=== PATIENT | female | born 2000 | race Caucasian/White ===

== ENCOUNTER 2020-11-12 07:00 | Outpatient (CLI) | payer MEDICAID | END 2020-11-12 23:59 | disposition home or self-care (01) | LOC: COV 07:00 | PROVIDERS: ATTEND Family Medicine | DX: R50.9 Fever, unspecified (principal); R05 Cough; R06.00 Dyspnea, unspecified; R53.83 Other fatigue; R07.0 Pain in throat; R19.7 Diarrhea, unspecified; R11.2 Nausea with vomiting, unspecified; Z20.822 Contact with and (suspected) exposure to COVID-19 ==

== ENCOUNTER 2021-11-25 14:11 | Outpatient (CLI) | payer MEDICAID ==
[2021-11-25 15:18] VITALS: BP 124/90
--- NOTE | 2021-11-25 15:18 | SLEEP CARE CONSULTATION ---
Information from patient questionnaire entered by Rigo So MA. I have reviewed and concur with the information entered by Rigo So MA. This document represents the service I personally performed and the decisions made by , Maria Elena Lagunas ARNP. History of Present Illness Service Date and Time: 11/25/2021 1411 Reason for Visit: New patient Chief Complaint: reports: Snoring, Excessive daytime sleepiness, Fatigue Date of Onset: 2 YEARS Usual bedtime: 10 - 11 PM Time it takes to fall asleep: 2-3 HOURS Snores at night: Yes Observed to quit breathing while asleep: No Sleeps alone due to snoring: No Number of times waking at night: 2-3 Reasons for waking at night: reports: Snoring, Pain, Bathroom Toss, Turn, or Twitch while sleeping: Yes Recalls having dreams: No Usually gets out of bed at: 0700 - 0800 Feels refreshed in the morning: No Morning headache: Yes (RESOLVES AFTER LUNCH; 3 times a week) Sleepy or fatigued during the day: Yes Ever fallen asleep while driving: No Takes day naps: Yes (almost every day; she sleeps for 2-3 hours) Dreams during day naps: No Prior sleep studies: No Additional HPI information: I had the pleasure of seeing NU MATTHEW today regarding the possibility of her having a sleep disorder. Her current complaints are snoring, excessive daytime sleepiness and fatigue. She has at least 2 nights a week that she cannot sleep at night. She will go to sleep the next night but it will still take her 2-3 hours to fall asleep. She states mostly after she goes to sleep she stays asleep. She will wake up to adjust for knee pain and also due to snoring. Her states her snoring is not bad and is more like gasping (airy) rather than snoring loudly. He has not seen her stop breathing and her snoring is not every night. She has also had times where she will sleep longer than 8-9 hours. She does not feel rested in the morning. She does have a 3 year old but states he has been sleeping through the night since he was 8 months old. - Parasomnia Symptoms Ever been unable to move upon waking from sleep: No Walks in sleep: No Talks in sleep: Yes Ever acted out dreams in sleep: No Ever felt weak in the knees when startled or emotional: No Bothered by creepy, crawly, restless sensations in legs: No Problems with memory or concentration: Yes (concentration, has ADHD) Subjective Initial [place] Sleepiness Scale score: 12 (2021) Past Medical History Past Medical History: reports: Arthritis, Insulin resistance (PCOS), Anxiety, Depression, Attention deficit Social History The patient's occupation is a [employer]. Patient is and lives in . Have you smoked in the past 12 months: No Alcohol use: Yes Alcohol amount and frequency: 2 -3 X YEARLY Caffeine use: Yes Caffeine amount and frequency: 3 X DAILY Family History Family history of sleep disordered breathing: Yes Family Hx Sleep Apnea: Mother: Snoring, Father: Snoring, Sleep apnea - Treated, Grandparent: Snoring, Sleep apnea - Untreated Allergies and Home Medications Known drug allergies: Yes (PNC, CODIENE, MORPHINE, LATEX) Drug allergies reviewed: Yes Home medication list reviewed: Yes Allergy and home medication list: Wellbutrin 300 mg daily Metformin Jencycla ( control) Vitamin D once a week daily multivitamin Review of Systems Weight gain over past 5 years: 80 Weight loss over past 5 years: 5-10 Cardiovascular: denies: high blood pressure Gastrointestinal: denies: heartburn Neurological: reports: headaches (hx of migrains), head trauma (as a child) Psychiatric: reports: Attention Deficit Hyperactivity, anxiety, depression Ear/Nose/Throat: reports: tonsillectomy. denies: wisdom teeth removed Endocrine: denies: thyroid disease Musculoskeletal: reports: joint pain (knees) Physical Exam Vital signs obtained and entered by: Katelin SO CMA [facility] Blood Pressure: 124/90 (LEFT, PULSE 89) Cuff size: wrist Heart Rate: 89 O2 Saturation: 98 (WITH PAPER MASK) Height: 5 ft 2 in Weight: 232 lb Body Mass Index: 42.4 BMI Classification: Morbidly Obese Neck circumference: 15 (inches) Hard palate: normal Uvula visualization: 100% Mallampati Class I Tongue: normal in size Tonsils: absent bilaterally Neck: normal w/o lymphadenopathy or thyromegaly Heart: regular rate and rhythm Lungs: clear bilaterally Impression and Plan 1. Suspected Obstructive Sleep Apnea-Hypopnea Syndrome, as suggested by a history of irregular snoring, morning headache, unrefreshed sleep, cognitive impairment, and excessive daytime sleepiness. Narrow oropharynx and obesity are common predisposing factors for obstructive sleep apnea-hypopnea syndrome. I recommend proceeding to polysomnography to confirm the diagnosis and to assess severity. If the patient has significant sleep disordered breathing, a manual CPAP titration study will also be performed to find the optimal treatment pressure. I informed the patient of what the sleep studies involve and after some discussion, obtained agreement to proceed. The pathophysiology of obstructive sleep apnea-hypopnea syndrome was discussed with the patient and health risks of cardiovascular and cerebrovascular disease if not treated. [facility] brochure for obstructive sleep apnea-hypopnea syndrome given and reviewed. Risks of drowsy driving discussed in detail and patient advised to avoid long distance driving and to gizzard puller at the first sign of drowsiness. Patient agreed to plan. [facility] drowsy driving brochure given. * Schedule polysomnography * Avoid long distance driving or driving when feeling sleepy. * Avoid alcohol, sedative and muscle relaxant around bedtime. * Continue to try to lose weight. * Review instructions provided by trained office staff on how to prepare for the sleep study. * Return for follow-up after sleep study completed. Counseling Topics: Weight loss health impact Visit Type: In Office Time Spent with Patient (minutes): 31 Provider Statement: I spent 100% of the Face to Face Visit with the patient with greater than 50% spent counseling the patient and coordination of care.
== END 2021-11-25 14:12 | disposition home or self-care (01) ==
LOC: SC 14:11
PROVIDERS: ATTEND Nurse Practitioner Family
DX: G47.10 Hypersomnia, unspecified (principal); R51.9 Headache, unspecified; R06.83 Snoring; G47.8 Other sleep disorders; R41.89 Other symptoms and signs involving cognitive functions and awareness; E66.01 Morbid (severe) obesity due to excess calories; Z68.41 Body mass index [BMI] 40.0-44.9, adult
CPT/HCPCS: 99203; 99212

== ENCOUNTER 2021-12-05 08:20 | Outpatient (CLI) | payer MEDICAID | END 2021-12-05 08:21 | disposition home or self-care (01) | LOC: SC 08:20 | PROVIDERS: ATTEND Nurse Practitioner Family | DX: R09.02 Hypoxemia (principal); R00.0 Tachycardia, unspecified | CPT/HCPCS: 95806 ==

== ENCOUNTER 2021-12-30 15:59 | Outpatient (CLI) | payer MEDICAID ==
[2021-12-30 16:27] VITALS: BP 127/72
--- NOTE | 2021-12-30 16:27 | SLEEP CARE CONSULTATION ---
Information from patient questionnaire entered by Rigo So MA. I have reviewed and concur with the information entered by Rigo So MA. This document represents the service I personally performed and the decisions made by , Maria Elena Lagunas ARNP. History of Present Illness Service Date and Time: 12/30/2021 1559 Initial [place] Sleepiness Scale score: 12 (2021) Current [place] Sleepiness Scale score: 11 (2021) Additional HPI information: NU MATTHEW returns for follow up and results of the recently performed home sleep study. The patient was informed of the following findings: No significant sleep disordered breathing with an average AHI of 1.6 and gatito oxygen saturation of 84%. She was also measured to have some tachycardia with an unverified heart rate of 219. I explained the pathophysiology behind obstructive sleep apnea. Patient does not have sleep apnea and was advised how weight gain could increase the risk of developing sleep apnea in the future. I strongly encouraged the patient to lose weight. Patient counseled not drink alcohol less than 4 hours before bedtime as it can increase snoring and apnea. Patient was cautioned about risks of drowsy driving until sleepiness symptoms resolve. Patient denies drowsy driving. Sleep Study - Results Type of Sleep Study: Home sleep study (F/U HOMESTUDY) Prior sleep studies: No Polysomnography/Home Sleep Study results: Physician Impression: The quality of the study is good. The length of the study is adequate (> 240 minutes). Please also see the tabulated and graphic data. 1. No significant sleep disordered breathing, with an AHI of 1.6/hr and g[place] SaO2 of 84%. During the study, the patient had 1 apneas (1 obstructive, 0 central, 0 mixed) and 14 hypopneas. The longest episode lasted 58.5 seconds. The patient slept almost exclusively in non-supine positions (supine AHI was 2.5 and non-supine, 1.48). 2. Hypoxemia (ICD-10 R09.02), minimal, with the lowest oxygen saturation of 84 % and 0.4 minutes with SaO2 under 90%. Baseline oxygen saturation was normal (Average oxygen saturation was 96%). 3. Tachycardia, with maximum recorded heart rate of 219 beats per minute but cannot be verified. Allergies and Home Medications Known drug allergies: Yes (PNC, CODINE, LATEX, MORPHNE) Drug allergies reviewed: Yes Home medication list reviewed: Yes (no changes) Review of Systems Review of systems same as previous: No (upcoming surgery on the 12 of January) Physical Exam Vital signs obtained and entered by: CABRERA GARCÍA Blood Pressure: 127/72 (LEFT, PULSE 95, RESP 16,) Cuff size: wrist Heart Rate: 97 O2 Saturation: 98 (PAPER MASK) Height: 5 ft 2 in Weight: 220 lb Body Mass Index: 40.2 BMI Classification: Morbidly Obese Impression and Plan 1. Tachycardia,unspecified. During the patient's home study there was a recorded maximum heart rate of 219 beats per minute but this could not be verified. Patient advised to follow up with PCP to consider cardiac monitoring to further evaluate her for the recorded tachycardia. * Attempt to lose weight * Avoid alcohol consumption near bedtime * Return as needed for follow up. Counseling Topics: Weight loss health impact Follow up recommended for: Other (Tachycardia) Visit Type: In Office Time Spent with Patient (minutes): 14 Provider Statement: I spent 100% of the Face to Face Visit with the patient with greater than 50% spent counseling the patient and coordination of care.
== END 2021-12-30 16:00 | disposition home or self-care (01) ==
LOC: SC 15:59
PROVIDERS: ATTEND Nurse Practitioner Family
DX: G47.10 Hypersomnia, unspecified (principal); E66.01 Morbid (severe) obesity due to excess calories; Z68.41 Body mass index [BMI] 40.0-44.9, adult; R00.0 Tachycardia, unspecified
CPT/HCPCS: 99212

== ENCOUNTER 2022-05-15 10:46 | Outpatient (CLI) | payer MEDICAID | END 2022-05-15 10:47 | disposition home or self-care (01) | LOC: LAB.N 10:46 | PROVIDERS: ATTEND Nurse Practitioner Obstetrics & Gynecology | DX: N91.2 Amenorrhea, unspecified (principal) | CPT/HCPCS: 36415; 84702 ==

== ENCOUNTER 2022-05-26 20:58 | Emergency (ER) | payer MEDICAID ==
[2022-05-26 21:22] LABS: BASOPHILS % (AUTO) 0.3 %; EOSINOPHILS # (AUTO) 0.2 10^3/uL (0.0-0.7); EOSINOPHILS % (AUTO) 1.8 %; HCT - HEMATOCRIT 40.1 % (37.0-47.0); HGB - HEMOGLOBIN 13.7 g/dL (12.0-16.0); LYMPHOCYTES # (AUTO) 3.3 10^3/uL (1.5-3.5); LYMPHOCYTES % (AUTO) 31.4 %; MEAN CORPUSCULAR HEMOGLOBIN 28.8 pg (27.0-31.0); MEAN CORPUSCULAR HGB CONC 34.2 g/dL (32.0-36.0); MEAN CORPUSCULAR VOLUME 84.4 fL (81.0-99.0); MEAN PLATELET VOLUME 11.1 fL (7.9-10.8); MONOCYTES # (AUTO) 0.6 10^3/uL (0.0-1.0); MONOCYTES % (AUTO) 5.8 %; NEUTROPHILS # (AUTO) 6.3 10^3/uL (1.5-6.6); NEUTROPHILS % (AUTO) 60.2 %; PLT - PLATELET COUNT 260 10^3/uL (130-450); RED BLOOD COUNT 4.75 10^6/uL (4.20-5.40); RED CELL DISTRIBUTION WIDTH 12.8 % (12.0-15.0); WHITE BLOOD COUNT 10.5 x10^3/uL (4.8-10.8)
--- NOTE | 2022-05-26 21:22 | ED Physician Documentation ---
PD HPI FEMALE - Stated complaint Stated Complaint: PREG,CRAMPING,BLEEDING - Chief complaint Chief Complaint: Abd Pain - History obtained from History obtained from: Patient - History of Present Illness Timing - onset: Yesterday - Additional information Additional information: 21-year-old female with history of PCOS, at unknown weeks gestational age presents for lower pelvic cramping and vaginal bleeding for 1 day. Patient states that she has irregular menstrual cycles and her last cycle was greater than 1 month ago. Reports positive test 05/06/22. Patient does not have an FORMULATION SCIENTIST appointment until June 05. She thinks that her blood type is O+ but she does not know for sure. Miscarriage at 11 weeks gestational age with last . Has 1 live born at term via . Review of Systems Ten Systems: 10 systems reviewed and negative Constitutional: denies: Fever, Chills Eyes: denies: Loss of vision, Decreased vision Cardiac: denies: Chest pain / pressure, Palpitations GI: denies: Abdominal Pain, Abdominal Swelling : reports: Vaginal bleeding, Now EGA. denies: LMP PD PAST MEDICAL HISTORY - Past Medical History Past Medical History: Yes : Other (PCOS) - Allergies Allergies/Adverse Reactions: Allergies Allergy/AdvReac Type Severity Reaction Status Date / Time codeine Allergy Edema Verified 05/26/22 21:06 morphine Allergy Hallucinati Verified 05/26/22 21:06 ons PD ED PE NORMAL - Vitals Vital signs reviewed: Yes - General General: Alert and oriented X 3, No acute distress, Well developed/nourished, Other (obese) - HEENT HEENT: Atraumatic, PERRL, EOMI - Neck Neck: Supple, no meningeal sign, No bony TTP, No adenopathy - Cardiac Cardiac: RRR, No murmur, Strong equal pulses - Respiratory Respiratory: No respiratory distress, Clear bilaterally - Abdomen Abdomen: Soft, Non tender, Non distended - Female Female : Deferred - Rectal Rectal: Deferred - Back Back: No CVA TTP, No spinal TTP - Derm Derm: Normal color, Warm and dry, No rash - Extremities Extremities: No deformity, No tenderness to palpate, Normal ROM s pain - Neuro Neuro: Alert and oriented X 3, hand plug shaper 2-12 intact, No motor deficit, No sensory deficit, Normal speech - Psych Psych: Normal mood, Normal affect Results - Vitals Vitals: Vital Signs - 24 hr 05/26/22 05/26/22 21:02 23:06 Temperature 36.8 C 36.5 C Heart Rate 97 88 Respiratory 16 16 Rate Blood Pressure 133/71 H 128/70 O2 Saturation 100 100 Oxygen O2 Source Room air - Labs Labs: Laboratory Tests 05/26/22 05/26/22 05/26/22 21:13 21:14 21:14 WBC 10.5 RBC 4.75 Hgb 13.7 Hct 40.1 MCV 84.4 MCH 28.8 MCHC 34.2 RDW 12.8 Plt Count 260 MPV 11.1 H Neut # (Auto) 6.3 Lymph # (Auto) 3.3 [place] # (Auto) 0.6 Eos # (Auto) 0.2 Baso # (Auto) 0.0 Absolute Nucleated RBC 0.00 Nucleated RBC % 0.0 Sodium 135 Potassium 3.6 Chloride 103 Carbon Dioxide 22 Anion Gap 10.0 BUN 17 Creatinine 0.8 Estimated GFR (MDRD) 89 Glucose 99 Calcium 9.5 Total Bilirubin 0.5 AST 24 ALT 32 Alkaline Phosphatase 65 Total Protein 7.7 Albumin 4.1 Globulin 3.6 Albumin/Globulin Ratio 1.1 HCG, Quant Urine Color RED/BLOODY Urine Clarity HAZY Urine pH 5.5 Ur Specific [place] >=1.030 H Urine Protein TRACE Urine Glucose (UA) NEGATIVE Urine Ketones NEGATIVE Urine Occult Blood LARGE H Urine Nitrite NEGATIVE Urine Bilirubin NEGATIVE Urine Urobilinogen 0.2 (NORMAL) Ur Leukocyte Esterase NEGATIVE Urine RBC TNTC H Urine WBC 0-3 Ur Squamous Epith Cells FEW Squamous Urine Bacteria Few Urine Mucus Few Strands Urine Culture Comments NOT INDICATED Blood Type 05/26/22 05/26/22 21:14 21:14 WBC RBC Hgb Hct MCV MCH MCHC RDW Plt Count MPV Neut # (Auto) Lymph # (Auto) [place] # (Auto) Eos # (Auto) Baso # (Auto) Absolute Nucleated RBC Nucleated RBC % Sodium Potassium Chloride Carbon Dioxide Anion Gap BUN Creatinine Estimated GFR (MDRD) Glucose Calcium Total Bilirubin AST ALT Alkaline Phosphatase Total Protein Albumin Globulin Albumin/Globulin Ratio HCG, Quant 18537.00 Urine Color Urine Clarity Urine pH Ur Specific [place] Urine Protein Urine Glucose (UA) Urine Ketones Urine Occult Blood Urine Nitrite Urine Bilirubin Urine Urobilinogen Ur Leukocyte Esterase Urine RBC Urine WBC Ur Squamous Epith Cells Urine Bacteria Urine Mucus Urine Culture Comments Blood Type O POSITIVE PD MEDICAL DECISION MAKING - ED course ED course: Vaginal bleeding in early . Patient is blood type O+. Transvaginal ultrasound shows gestational sac without obvious heartbeat. When correlating with hCG there is high suspicion for early miscarriage. Patient was counseled on ultrasound and lab findings. She was counseled to keep her appointment for follow-up on June 05 as previously scheduled. Pelvic rest counseled until seen and cleared by FORMULATION SCIENTIST. Departure - Departure Disposition: Home, Self Care Clinical Impression: Threatened miscarriage, Type O blood, Rh positive Instructions: ED Miscarriage Poss Comments: Keep your follow-up appointment as already scheduled on the . Pelvic rest until seen and cleared by FORMULATION SCIENTIST. Your blood type O+ today. Discharge Date/Time: 05/26/22 23:18
--- OUTSIDE RECORDS SUMMARY | 2022-05-26 21:22 | EXTERNAL MEDICAL SUMMARY RPT | Continuity of Care Document ---
:2000 Author Organization [place] Address [address] [place] [address] Phone Allergies No information. Encounters No information. Functional Status No information. Immunizations No information. Medications date description facility + Ondansetron 4 MG Disintegrating Tablet [facility] Problems No information. Procedures date description facility Diagnosis [facility] + Finding [facility] + General Physician [facility] Results/Labs test date author facility value unit interpret ation Result panel 1 (unknown) (no (unknown) (unknown) (no value) (units (unk nown) date) unknown) (unknown) (no (unknown) (unknown) Qualifiers: (units (un known) date) unknown) (unknown) (no (unknown) (unknown) Status: Acute (units ( unknown) date) unknown) (unknown) (no (unknown) (unknown) Messi from 150 (units (unknown) date) mg. - Initially unknown) thought it was working well. Feeling more (unknown) (no (unknown) (unknown) agitated (units (unkno wn) date) recently. Spouse unknown) pointed out that patient has been more agitated (unknown) (no (unknown) (unknown) anger and (units (unkn own) date) frustration. unknown) (unknown) (no (unknown) (unknown) any clear side (units (unknown) date) effects, becasue unknown) was taking multiple medications at one (unknown) (no (unknown) (unknown) option. There are (units (unknown) date) lots available, unknown) but one is Breathwrk. (unknown) (no (unknown) (unknown) time. (units (unkno wn) date) unknown) (unknown) (no (unknown) (unknown) with son. Overall (units (unknown) date) fortune. unknown) (unknown) (no (unknown) (unknown) (no value) (units (unk nown) date) unknown) (unknown) (no (unknown) (unknown) (no value) (units (unk nown) date) unknown) (unknown) (no (unknown) (unknown) * Acknowledge (units ( unknown) date) that you are doing unknown) everything that you can to prepare to move. (unknown) (no (unknown) (unknown) * At age 16 (units (un known) date) stopped taking unknown) medication 'cold turkey.' Spur overmedicated. (unknown) (no (unknown) (unknown) * Deep breathing (units (unknown) date) - this Care unknown) Dry Box Operator recommended using an akash as another (unknown) (no (unknown) (unknown) * Balta, (units (unk nown) date) Adderrall, unknown) escitalopram, sertraline - don't recall if there were (unknown) (no (unknown) (unknown) * Self timeout (units (unknown) date) unknown) (unknown) (no (unknown) (unknown) * Used to write, (units (unknown) date) but does not feel unknown) that she has the quiet time to do so now. (unknown) (no (unknown) (unknown) * Using 70419 (units ( unknown) date) while deep unknown) breathing. Patient says that this has helped with (unknown) (no (unknown) (unknown) * bupropion HCl (units (unknown) date) (Wellbutrin XL) unknown) 300 mg? PO QAM 90 tabs 1RF - Increased in (unknown) (no (unknown) (unknown) ADDENDUM (units (u nknown) date) unknown) (unknown) (no (unknown) (unknown) 01/15/22 1300 (units ( unknown) date) unknown) (unknown) (no (unknown) (unknown) 04/06/22 1016 (units ( unknown) date) unknown) (unknown) (no (unknown) (unknown) Active/Remission (units (unknown) date) status: currently unknown) active Major depression episode (unknown) (no (unknown) (unknown) After 7 days if (units (unknown) date) no side effects unknown) increase to 2 caps daily 37.5 mg PO DAILY (unknown) (no (unknown) (unknown) JOSELUIS Laughlin (units ( unknown) date) [id number] unknown) (unknown) (no (unknown) (unknown) Care Management (units (unknown) date) Visit unknown) (unknown) (no (unknown) (unknown) Date PHQ9 GAD7 (units (unknown) date) unknown) (unknown) (no (unknown) (unknown) Discontinued (units (u nknown) date) Reason: Dose unknown) Change (unknown) (no (unknown) (unknown) [facility]) (unknown) (no (unknown) (unknown) Signed with (units (un known) date) Addenda unknown) (unknown) (no (unknown) (unknown) Stop after 7 days (units (unknown) date) (cross-taper with unknown) venlafaxine XR) 150 mg PO QAM 7 tabs (unknown) (no (unknown) (unknown) (no value) (units (unk nown) date) unknown) (unknown) (no (unknown) (unknown) (4 extra people (units (unknown) date) and 5 extra unknown) animals). (unknown) (no (unknown) (unknown) 01/15/22, patient (units (unknown) date) has not received unknown) mailing yet. (unknown) (no (unknown) (unknown) Father has been (units (unknown) date) helping, but has unknown) an appointment in [place] today. Was supposed (unknown) (no (unknown) (unknown) In the past it (units (unknown) date) was a strained unknown) relationship. Brother is older but has seems (unknown) (no (unknown) (unknown) Paperwork process (units (unknown) date) but [employer] company unknown) wants preapproval from insurance. (unknown) (no (unknown) (unknown) Wanting time to (units (unknown) date) develop working unknown) careers here in [place]. (unknown) (no (unknown) (unknown) Worksheet). (units (un known) date) unknown) (unknown) (no (unknown) (unknown) YouTube video (units ( unknown) date) with guided unknown) movement called 'Freeze Dance.' (unknown) (no (unknown) (unknown) are close to her (units (unknown) date) age, since she has unknown) not met a lot of people living here. (unknown) (no (unknown) (unknown) bed, use an akash. (units (unknown) date) unknown) (unknown) (no (unknown) (unknown) children. Was (units ( unknown) date) encouraged that unknown) there were some other women working there who (unknown) (no (unknown) (unknown) father's rental (units (unknown) date) homes. unknown) (unknown) (no (unknown) (unknown) from home. (units (unk nown) date) unknown) (unknown) (no (unknown) (unknown) next 2 weeks. (units ( unknown) date) unknown) (unknown) (no (unknown) (unknown) patient. (units (unkno wn) date) unknown) (unknown) (no (unknown) (unknown) procedures were (units (unknown) date) completed and unknown) patient is expected to be on crutches for the (unknown) (no (unknown) (unknown) she can practice (units (unknown) date) deep breathing or unknown) gentle movement. Maybe do exercise in am (unknown) (no (unknown) (unknown) stepmother and (units (unknown) date) their children. unknown) (unknown) (no (unknown) (unknown) to go back to (units ( unknown) date) work today, but unknown) recovery is taking longer since additional (unknown) (no (unknown) (unknown) who is not living (units (unknown) date) with them. 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 (unknown) (no (unknown) (unknown) younger because (units (unknown) date) of having autism. unknown) (unknown) (no (unknown) (unknown) * 21 year old (units ( unknown) date) female referred to unknown) BHIP by CHAPIN Barbosa for depression. (unknown) (no (unknown) (unknown) (1) Major (units (unkn own) date) depressive unknown) disorder: (unknown) (no (unknown) (unknown) * 2 adopted (units (un known) date) sisters, ages 15 + unknown) 13. (unknown) (no (unknown) (unknown) * 8 year old twin (units (unknown) date) boys and 15 year unknown) old brother, who are half siblings to (unknown) (no (unknown) (unknown) * Current: (units (unk nown) date) unknown) (unknown) (no (unknown) (unknown) * Discussed tools (units (unknown) date) that patient has unknown) used in the past to manage anxiety: (unknown) (no (unknown) (unknown) * Encouraged (units (u nknown) date) patient set aside unknown) time in morning and evening (5-10 minutes), when (unknown) (no (unknown) (unknown) * Had knee (units (unk nown) date) surgery on Wednesday. unknown) Today is the first day that she is home alone. (unknown) (no (unknown) (unknown) * Is working on (units (unknown) date) process of getting unknown) a wheelchair, fell down with crutches. (unknown) (no (unknown) (unknown) * Lives with (units (u nknown) date) spouse ( in unknown) December 2019), 3 year old son, father and (unknown) (no (unknown) (unknown) * Longer term (units ( unknown) date) plan is to move unknown) closer to [place] where they have more family. (unknown) (no (unknown) (unknown) * Mailed article (units (unknown) date) Activating the unknown) Parasympatheric Nervous System, and following (unknown) (no (unknown) (unknown) * Mother and (units (u nknown) date) brother live in unknown) [place]. Patient is very close with her mother now. 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 Position (unknown) (no (unknown) (unknown) * Parent's friends (units (unknown) date) still living in unknown) the home.have moved into already crowded home (unknown) (no (unknown) (unknown) * Past: (units (unkno wn) date) unknown) (unknown) (no (unknown) (unknown) * Patient has (units ( unknown) date) been attending unknown) [facility] since December 2021. (unknown) (no (unknown) (unknown) * Patient is (units (u nknown) date) using breathing unknown) exercises and using movement with her son. Found a (unknown) (no (unknown) (unknown) * Postoperative (units (unknown) date) appointment is unknown) 02/26/22. (unknown) (no (unknown) (unknown) * Stepmother has (units (unknown) date) an older son, not unknown) in the home and hey also adopted another son, (unknown) (no (unknown) (unknown) * Work has been (units (unknown) date) understanding and unknown) giving her training materials that she can do (unknown) (no (unknown) (unknown) * Write down list (units (unknown) date) of worries, unknown) question accuracy and reframe (see Worries (unknown) (no (unknown) (unknown) - 75 mg of (units (unk nown) date) venlafaxine - unknown) feeling less agitated, spouse says that he has noticed (unknown) (no (unknown) (unknown) - Agree with (units (u nknown) date) 12/17/21 plan to unknown) switch antidepressants. Venlafaxine is good choice (unknown) (no (unknown) (unknown) - No longer (units (un known) date) taking any unknown) buproprion, (unknown) (no (unknown) (unknown) (units (unknown) date) unknown) (unknown) (no (unknown) (unknown) (units (unknown) date) unknown) (unknown) (no (unknown) (unknown) (units (unknown) date) unknown) (unknown) (no (unknown) (unknown) (units (unknown) date) unknown) (unknown) (no (unknown) (unknown) 01/15/22 (units (unkno wn) date) unknown) (unknown) (no (unknown) (unknown) [id number] (units (unkno wn) date) unknown) (unknown) (no (unknown) (unknown) 0RF (units (unkno wn) date) unknown) (unknown) (no (unknown) (unknown) 1. Little (units (unkn own) date) interest or unknown) pleasure in doing things: several days (unknown) (no (unknown) (unknown) 2. Feeling down, (units (unknown) date) depressed, or unknown) hopeless: several days (unknown) (no (unknown) (unknown) 12/15/21 - (units (unkn own) date) unknown) (unknown) (no (unknown) (unknown) 12/15/21 13 12 (units ( unknown) date) unknown) (unknown) (no (unknown) (unknown) 12/17/21 - PCP (units ( unknown) date) Saravanan - unknown) (unknown) (no (unknown) (unknown) 12/22/21 (units (un known) date) [facility] unknown) RECOMMENDATIONS + TREATMENT PLAN for PCP Saravanan: (unknown) (no (unknown) (unknown) 21 year old female (units (unknown) date) participating in unknown) [facility] for symptoms of depression. Patient and (unknown) (no (unknown) (unknown) 3 year old son. (units (unknown) date) Patient states unknown) that prior to moving to [place] in 2019, she (unknown) (no (unknown) (unknown) 3. Trouble (units (unk nown) date) falling or staying unknown) asleep, or sleeping too much: nearly every day (unknown) (no (unknown) (unknown) 12/30/21 - (units (unkno wn) date) venlafaxine - for unknown) 1 week have been taking 37.5 mg, today will start (unknown) (no (unknown) (unknown) 01/15/22 (units (unkno wn) date) unknown) (unknown) (no (unknown) (unknown) 01/15/22 16 15 (units ( unknown) date) unknown) (unknown) (no (unknown) (unknown) 4. Feeling tired (units (unknown) date) or having little unknown) energy: nearly every day (unknown) (no (unknown) (unknown) 40 minutes (units (unk nown) date) unknown) (unknown) (no (unknown) (unknown) 5. Poor appetite (units (unknown) date) or overeating: unknown) nearly every day (unknown) (no (unknown) (unknown) 6. Feeling bad (units (unknown) date) about yourself - unknown) or that you are a failure or have let yourself (unknown) (no (unknown) (unknown) 60 caps 1RF (units (un known) date) unknown) (unknown) (no (unknown) (unknown) 7. Trouble (units (unk nown) date) concentrating on unknown) things, such as reading the newspaper or watching (unknown) (no (unknown) (unknown) 8. Moving or (units (u nknown) date) speaking so slowly unknown) that other people could have noticed? - Or the (unknown) (no (unknown) (unknown) 9. Thoughts that (units (unknown) date) you would be unknown) better off or of hurting yourself in some (unknown) (no (unknown) (unknown) Addendum (units (unkno wn) date) Documented By: unknown) OSCAR Rocha (unknown) (no (unknown) (unknown) Addendum Signed (units (unknown) date) By: unknown) <Electronically signed by Christelle Parson MS (unknown) (no (unknown) (unknown) Age/Sex: 21 / F (units (unknown) date) Date of Service: unknown) (unknown) (no (unknown) (unknown) Agreed to by [facility] (units (unknown) date) team unknown) (unknown) (no (unknown) (unknown) All participants (units (unknown) date) + their role: unknown) (Providers,Parent, Spouse,etc): (unknown) (no (unknown) (unknown) Attending Dr: (units ( unknown) date) Christelle MOORE unknown) (unknown) (no (unknown) (unknown) BHIP Assessment + (units (unknown) date) Plan unknown) (unknown) (no (unknown) (unknown) BHIP Fretted String Instrument Repairer (units (unknown) date) Follow-Up unknown) (unknown) (no (unknown) (unknown) BHIP CoCM Time: (units (unknown) date) manager statistics total unknown) time spent in discharge process including (unknown) (no (unknown) (unknown) BHIP Discharge (units (unknown) date) Note unknown) (unknown) (no (unknown) (unknown) BHIP Goal #1: New (units (unknown) date) adult coping unknown) skills (unknown) (no (unknown) (unknown) BHIP Goal (units (unkn own) date) Progress#1: 4 unknown) (Applying skills) (unknown) (no (unknown) (unknown) Becoming easily (units (unknown) date) annoyed or unknown) irritable: 1 = Several days (unknown) (no (unknown) (unknown) Being so restless (units (unknown) date) that it is hard to unknown) sit still: 1 = Several days (unknown) (no (unknown) (unknown) Case Formulation (units (unknown) date) unknown) (unknown) (no (unknown) (unknown) Cognitive (units (unkn own) date) Behavioral unknown) Therapy, Motivational Interviewing and Mindfulness (unknown) (no (unknown) (unknown) : 2000 (units (unknown) date) Acct:[id number] unknown) (unknown) (no (unknown) (unknown) Dept at (units (unkno wn) date) . unknown) (unknown) (no (unknown) (unknown) Discontinued (units (u nknown) date) unknown) (unknown) (no (unknown) (unknown) Documented By: (units (unknown) date) Christelle Parson unknown) 01/15/22 0805 (unknown) (no (unknown) (unknown) F32.0 - Major (units ( unknown) date) depressive unknown) disorder, single episode, mild (unknown) (no (unknown) (unknown) Family:: (units (unkno wn) date) unknown) (unknown) (no (unknown) (unknown) Feeling afraid as (units (unknown) date) if something awful unknown) might happen: 3 = Nearly every day (unknown) (no (unknown) (unknown) Feeling nervous, (units (unknown) date) anxious, or on unknown) edge: 3 = Nearly every day (unknown) (no (unknown) (unknown) Future Plans: (units ( unknown) date) Refer to [facility] in unknown) the future as needed for worsening symptoms. (unknown) (no (unknown) (unknown) KALIE-7 (units (unkno wn) date) unknown) (unknown) (no (unknown) (unknown) Goals + Progress (units (unknown) date) unknown) (unknown) (no (unknown) (unknown) Interventions (units ( unknown) date) unknown) (unknown) (no (unknown) (unknown) Loc: [facility] (units (unkno wn) date) unknown) (unknown) (no (unknown) (unknown) Location of (units (un known) date) patient:: Home unknown) (unknown) (no (unknown) (unknown) Location of (units (un known) date) provider:: [address]) [address] (unknown) (no (unknown) (unknown) Medication Update (units (unknown) date) unknown) (unknown) (no (unknown) (unknown) Not being able to (units (unknown) date) stop or control unknown) worryin = Nearly every day (unknown) (no (unknown) (unknown) Other (units (unkno wn) date) unknown) (unknown) (no (unknown) (unknown) Other/Additional (units (unknown) date) Details:: unknown) (unknown) (no (unknown) (unknown) Over the last 2 (units (unknown) date) weeks, how often unknown) have you been bothered by any of the following (unknown) (no (unknown) (unknown) PHQ-9 (units (unkno wn) date) unknown) (unknown) (no (unknown) (unknown) Patient can (units (un known) date) readmit to [facility] unknown) for a limited course of therapy. (unknown) (no (unknown) (unknown) Patient consented (units (unknown) date) to receive unknown) services via telehealth?: Yes (unknown) (no (unknown) (unknown) Patient: (units (unkno wn) date) Nu Matthew O unknown) MR#: [id number] (unknown) (no (unknown) (unknown) Presenting (units (unk nown) date) Problem Update unknown) (unknown) (no (unknown) (unknown) Previous: (units (unkn own) date) unknown) (unknown) (no (unknown) (unknown) Protective (units (unk nown) date) Factors: spouse, 3 unknown) year old son, parents, multiple siblings. (unknown) (no (unknown) (unknown) Questionnaires (units (unknown) date) unknown) (unknown) (no (unknown) (unknown) Real-time,sychron (units (unknown) date) ous services were unknown) performed via:: VSee (unknown) (no (unknown) (unknown) Reason for (units (unk nown) date) Discharge: Not unknown) engaged (unknown) (no (unknown) (unknown) Signed By: (units (unk nown) date) <Electronically unknown) signed by OSCAR Rocha> (unknown) (no (unknown) (unknown) Source: Developed (units (unknown) date) by Drs. Navneet Thomason unknown) Pura Cabrera, Zelalem Blackmon (unknown) (no (unknown) (unknown) Christelle Parson, (units (unknown) date) SOCIAL WORK PROGRAM COORDINATOR, INTERNAL SALES ENGINEER unknown) (unknown) (no (unknown) (unknown) TeleHealth (units (unk nown) date) unknown) (unknown) (no (unknown) (unknown) This note may (units ( unknown) date) have been all or unknown) partially generated using voice recognition (unknown) (no (unknown) (unknown) Time Spent (units (unk nown) date) unknown) (unknown) (no (unknown) (unknown) Time Spent: (units (un known) date) unknown) (unknown) (no (unknown) (unknown) Total KALIE-7 score (units (unknown) date) (0-4 normal; 5-9 unknown) mild; 10-14 moderate; 15-21 severe): 15 (unknown) (no (unknown) (unknown) Total score: 16 (units (unknown) date) unknown) (unknown) (no (unknown) (unknown) Trouble relaxing: (units (unknown) date) 2 = More than half unknown) the days (unknown) (no (unknown) (unknown) W> 04/06/22 (units (unknown) date) 1016 unknown) (unknown) (no (unknown) (unknown) Were services (units ( unknown) date) performed via unknown) telephone only?: No (unknown) (no (unknown) (unknown) Worrying too much (units (unknown) date) about different unknown) things: 2 = More than half the days (unknown) (no (unknown) (unknown) and colleagues, (units (unknown) date) with an unknown) educational shantanu from [employer]. (unknown) (no (unknown) (unknown) and communication (units (unknown) date) with patient: 10 unknown) min (unknown) (no (unknown) (unknown) and your family (units (unknown) date) down: nearly every unknown) day (unknown) (no (unknown) (unknown) bupropion HCl (units ( unknown) date) (Wellbutrin XL) unknown) (unknown) (no (unknown) (unknown) communication (units ( unknown) date) with referring unknown) provider + psychiatric linux consultant, documentation, (unknown) (no (unknown) (unknown) have occurred. (units (unknown) date) If there are any unknown) questions, please contact the Medical Records (unknown) (no (unknown) (unknown) may occur. (units (unk nown) date) Occasional unknown) wrong-word or 'sound-alike' substitutions may have (unknown) (no (unknown) (unknown) more than usual: (units (unknown) date) not at all unknown) (unknown) (no (unknown) (unknown) new living (units (unkn own) date) environment, but unknown) now has new stressors in current living environment. (unknown) (no (unknown) (unknown) occurred due to (units (unknown) date) the inherent unknown) limitations of voice recognition software. Please (unknown) (no (unknown) (unknown) opposite - being (units (unknown) date) so fidgety or unknown) restless that you have been moving around a lot (unknown) (no (unknown) (unknown) problems? (units (unkn own) date) unknown) (unknown) (no (unknown) (unknown) read the note (units ( unknown) date) carefully and unknown) recognize, using context, where these substitutions (unknown) (no (unknown) (unknown) related to (units (unk nown) date) medications. Does unknown) feel that she is less agitated. (unknown) (no (unknown) (unknown) severity: mild (units (unknown) date) Major depression unknown) recurrence: single episode Qualified Code(s): (unknown) (no (unknown) (unknown) since no previous (units (unknown) date) SNRI trials. unknown) (unknown) (no (unknown) (unknown) software. (units (unkn own) date) Although every unknown) effort is made to edit content, oyster picker errors (unknown) (no (unknown) (unknown) spouse are living (units (unknown) date) with her father, unknown) stepmother and 5 siblings, in addition to her (unknown) (no (unknown) (unknown) taking 75 mg per (units (unknown) date) PCP Saravanan's unknown) directions. Feeling 'monotone' and not sure if (unknown) (no (unknown) (unknown) television: more (units (unknown) date) than half the days unknown) (unknown) (no (unknown) (unknown) too, some (units (unkn own) date) increased unknown) motivation. (unknown) (no (unknown) (unknown) venlafaxine ER (units (unknown) date) unknown) (unknown) (no (unknown) (unknown) was feeling some (units (unknown) date) depression. unknown) Initially, she experienced less stress due to the (unknown) (no (unknown) (unknown) way: not at all (units (unknown) date) unknown) Result panel 2 (unknown) (no (unknown) (unknown) (no value) (units (unk nown) date) unknown) (unknown) (no (unknown) (unknown) (no value) (units (unk nown) date) unknown) (unknown) (no (unknown) (unknown) [facility] (units (unknown) date) Medicine unknown) (unknown) (no (unknown) (unknown) [place] (units ( unknown) date) [id number] unknown) (unknown) (no (unknown) (unknown) Draft (units (unkno wn) date) unknown) (unknown) (no (unknown) (unknown) Family Practice (units (unknown) date) Office Visit unknown) (unknown) (no (unknown) (unknown) Hives (units (unkno wn) date) unknown) (unknown) (no (unknown) (unknown) (no value) (units (unk nown) date) unknown) (unknown) (no (unknown) (unknown) [id number] (units (unkno wn) date) unknown) (unknown) (no (unknown) (unknown) 04/22/22 (units (unkno wn) date) unknown) (unknown) (no (unknown) (unknown) ADHD (units (unkno wn) date) unknown) (unknown) (no (unknown) (unknown) Age/Sex: 21 / F (units (unknown) date) Date of Service: unknown) (unknown) (no (unknown) (unknown) Allergic rhinitis (units (unknown) date) unknown) (unknown) (no (unknown) (unknown) Allergies (units (unkn own) date) unknown) (unknown) (no (unknown) (unknown) Anxiety (units (unkno wn) date) unknown) (unknown) (no (unknown) (unknown) Asthma (units (unkno wn) date) unknown) (unknown) (no (unknown) (unknown) Attending Dr: (units ( unknown) date) María SAMSON unknown) (unknown) (no (unknown) (unknown) Chronic back pain (units (unknown) date) unknown) (unknown) (no (unknown) (unknown) : 2000 (units (unknown) date) Acct:[id number] unknown) (unknown) (no (unknown) (unknown) Dept at (units (unkno wn) date) . unknown) (unknown) (no (unknown) (unknown) Documented By: (units (unknown) date) María Alvarez unknown) 04/22/22 1009 (unknown) (no (unknown) (unknown) Hyperandrogenism (units (unknown) date) unknown) (unknown) (no (unknown) (unknown) Intake (units (unkno wn) date) unknown) (unknown) (no (unknown) (unknown) Intake Note: (units (u nknown) date) unknown) (unknown) (no (unknown) (unknown) Intake performed (units (unknown) date) by: Artemio Pettit unknown) (unknown) (no (unknown) (unknown) Intake- Clincial (units (unknown) date) Staff unknown) (unknown) (no (unknown) (unknown) Last Menstural (units (unknown) date) Cycle + Details unknown) (unknown) (no (unknown) (unknown) Loc: [facility] (units (unkno wn) date) unknown) (unknown) (no (unknown) (unknown) Major depressive (units (unknown) date) disorder unknown) (unknown) (no (unknown) (unknown) Medical History (units (unknown) date) (Reviewed 01/14/22 unknown) @ 16:29 by CHAPIN Barbosa) (unknown) (no (unknown) (unknown) Migraines (units (unkn own) date) unknown) (unknown) (no (unknown) (unknown) Other Menstrual (units (unknown) date) Period: Other unknown) (unknown) (no (unknown) (unknown) PFSH (units (unkno wn) date) unknown) (unknown) (no (unknown) (unknown) Patient: (units (unkno wn) date) [facility] unknown) MR#: [id number] (unknown) (no (unknown) (unknown) Penicillins (units (un known) date) Allergy (Verified unknown) 01/09/22 14:15) (unknown) (no (unknown) (unknown) Pt presents with a (units (unknown) date) migraine. unknown) (unknown) (no (unknown) (unknown) Reason For Visit (units (unknown) date) unknown) (unknown) (no (unknown) (unknown) Signed By: (units (unk nown) date) unknown) (unknown) (no (unknown) (unknown) Smoking Status: (units (unknown) date) Never smoker unknown) (unknown) (no (unknown) (unknown) Social History (units (unknown) date) unknown) (unknown) (no (unknown) (unknown) Tachycardia (units (un known) date) unknown) (unknown) (no (unknown) (unknown) This note may have (units (unknown) date) been all or unknown) partially generated using voice recognition (unknown) (no (unknown) (unknown) Tobacco + (units (unkn own) date) Substance Use unknown) (unknown) (no (unknown) (unknown) Tobacco Status (units (unknown) date) unknown) (unknown) (no (unknown) (unknown) Visit Reasons: (units (unknown) date) Migraine unknown) (unknown) (no (unknown) (unknown) alcohol intake: (units (unknown) date) current unknown) (unknown) (no (unknown) (unknown) codeine Allergy (units (unknown) date) (Verified 01/09/22 unknown) 14:15) (unknown) (no (unknown) (unknown) have occurred. If (units (unknown) date) there are any unknown) questions, please contact the Medical Records (unknown) (no (unknown) (unknown) household members: (units (unknown) date) spouse and children unknown) (unknown) (no (unknown) (unknown) latex Adverse (units ( unknown) date) Reaction (Verified unknown) 01/09/22 14:15) (unknown) (no (unknown) (unknown) may occur. (units (unk nown) date) Occasional unknown) wrong-word or 'sound-alike' substitutions may have (unknown) (no (unknown) (unknown) morphine Allergy (units (unknown) date) (Verified 01/09/22 unknown) 14:15) (unknown) (no (unknown) (unknown) occurred due to (units (unknown) date) the inherent unknown) limitations of voice recognition software. Please (unknown) (no (unknown) (unknown) read the note (units ( unknown) date) carefully and unknown) recognize, using context, where these substitutions (unknown) (no (unknown) (unknown) software. Although (units (unknown) date) every effort is unknown) made to edit content, oyster picker errors Result panel 3 (unknown) (no (unknown) (unknown) (no value) (units (unk nown) date) unknown) (unknown) (no (unknown) (unknown) (no value) (units (unk nown) date) unknown) (unknown) (no (unknown) (unknown) (no value) (units (unk nown) date) unknown) (unknown) (no (unknown) (unknown) 04/22/22 (units (unkno wn) date) unknown) (unknown) (no (unknown) (unknown) 10:12 (units (unkno wn) date) unknown) (unknown) (no (unknown) (unknown) [facility] (units (unknown) date) Medicine unknown) (unknown) (no (unknown) (unknown) [place] (units ( unknown) date) [id number] unknown) (unknown) (no (unknown) (unknown) Draft (units (unkno wn) date) unknown) (unknown) (no (unknown) (unknown) Family Practice (units (unknown) date) Office Visit unknown) (unknown) (no (unknown) (unknown) Hives (units (unkno wn) date) unknown) (unknown) (no (unknown) (unknown) (no value) (units (unk nown) date) unknown) (unknown) (no (unknown) (unknown) #12 caps 09/10/21 (units (unknown) date) [Rx Confirmed unknown) 04/22/22] (unknown) (no (unknown) (unknown) 01/14/22 [Rx (units (u nknown) date) Confirmed 04/22/22] unknown) (unknown) (no (unknown) (unknown) [id number] (units (unkno wn) date) unknown) (unknown) (no (unknown) (unknown) 04/22/22 (units (unkno wn) date) unknown) (unknown) (no (unknown) (unknown) ADHD (units (unkno wn) date) unknown) (unknown) (no (unknown) (unknown) Age/Sex: 21 / F (units (unknown) date) Date of Service: unknown) (unknown) (no (unknown) (unknown) Allergic rhinitis (units (unknown) date) unknown) (unknown) (no (unknown) (unknown) Allergies (units (unkn own) date) unknown) (unknown) (no (unknown) (unknown) Anxiety (units (unkno wn) date) unknown) (unknown) (no (unknown) (unknown) Asthma (units (unkno wn) date) unknown) (unknown) (no (unknown) (unknown) Attending Dr: (units ( unknown) date) María SAMSON unknown) (unknown) (no (unknown) (unknown) BP 124/80 (units (u nknown) date) unknown) (unknown) (no (unknown) (unknown) Blood Pressure (units (unknown) date) Location Lt unknown) brachial (unknown) (no (unknown) (unknown) Chronic back pain (units (unknown) date) unknown) (unknown) (no (unknown) (unknown) Confirmed (units (unkn own) date) 04/22/22] unknown) (unknown) (no (unknown) (unknown) : 2000 (units (unknown) date) Acct:[id number] unknown) (unknown) (no (unknown) (unknown) Dept at (units (unkno wn) date) . unknown) (unknown) (no (unknown) (unknown) Documented By: (units (unknown) date) María Alvarez unknown) 04/22/22 1009 (unknown) (no (unknown) (unknown) Hyperandrogenism (units (unknown) date) unknown) (unknown) (no (unknown) (unknown) Intake (units (unkno wn) date) unknown) (unknown) (no (unknown) (unknown) Intake Note: (units (u nknown) date) unknown) (unknown) (no (unknown) (unknown) Intake performed (units (unknown) date) by: Artemio Pettit unknown) (unknown) (no (unknown) (unknown) Intake- Clincial (units (unknown) date) Staff unknown) (unknown) (no (unknown) (unknown) Last Menstural (units (unknown) date) Cycle + Details unknown) (unknown) (no (unknown) (unknown) Loc: [facility] (units (unkno wn) date) unknown) (unknown) (no (unknown) (unknown) Major depressive (units (unknown) date) disorder unknown) (unknown) (no (unknown) (unknown) Medical History (units (unknown) date) (Reviewed 01/14/22 unknown) @ 16:29 by CHAPIN Barbosa) (unknown) (no (unknown) (unknown) Medications (units (un known) date) unknown) (unknown) (no (unknown) (unknown) Migraines (units (unkn own) date) unknown) (unknown) (no (unknown) (unknown) Other Menstrual (units (unknown) date) Period: Other unknown) (unknown) (no (unknown) (unknown) Oxygen Delivery (units (unknown) date) Method room air unknown) (unknown) (no (unknown) (unknown) PFSH (units (unkno wn) date) unknown) (unknown) (no (unknown) (unknown) Patient: (units (unkno wn) date) [facility] unknown) MR#: [id number] (unknown) (no (unknown) (unknown) Penicillins (units (un known) date) Allergy (Verified unknown) 04/22/22 10:12) (unknown) (no (unknown) (unknown) Position (units (unkno wn) date) Sitting unknown) (unknown) (no (unknown) (unknown) Pt presents with a (units (unknown) date) migraine. No other unknown) symptoms. Has had it since wednesday. Took (unknown) (no (unknown) (unknown) Pulse 83 (units (un known) date) unknown) (unknown) (no (unknown) (unknown) Pulse Oximetry (%) (units (unknown) date) 98 unknown) (unknown) (no (unknown) (unknown) Pulse Source (units (u nknown) date) Monitor unknown) (unknown) (no (unknown) (unknown) Reason For Visit (units (unknown) date) unknown) (unknown) (no (unknown) (unknown) Respiration 16 (units (unknown) date) unknown) (unknown) (no (unknown) (unknown) Signed By: (units (unk nown) date) unknown) (unknown) (no (unknown) (unknown) Smoking Status: (units (unknown) date) Never smoker unknown) (unknown) (no (unknown) (unknown) Social History (units (unknown) date) unknown) (unknown) (no (unknown) (unknown) Tachycardia (units (un known) date) unknown) (unknown) (no (unknown) (unknown) Temp 97.9 F (units (unknown) date) unknown) (unknown) (no (unknown) (unknown) Temp Source (units (un known) date) Skin unknown) (unknown) (no (unknown) (unknown) This note may have (units (unknown) date) been all or unknown) partially generated using voice recognition (unknown) (no (unknown) (unknown) Tobacco + (units (unkn own) date) Substance Use unknown) (unknown) (no (unknown) (unknown) Tobacco Status (units (unknown) date) unknown) (unknown) (no (unknown) (unknown) Visit Reasons: (units (unknown) date) Migraine unknown) (unknown) (no (unknown) (unknown) Vitals (units (unkno wn) date) unknown) (unknown) (no (unknown) (unknown) Weight 231 lb 8 (units (unknown) date) oz unknown) (unknown) (no (unknown) (unknown) [Rx Confirmed (units ( unknown) date) 04/22/22] unknown) (unknown) (no (unknown) (unknown) albuterol sulfate (units (unknown) date) 90 mcg/actuation unknown) aerosol inhaler 2 puff inhalation Q6H PRN (unknown) (no (unknown) (unknown) alcohol intake: (units (unknown) date) current unknown) (unknown) (no (unknown) (unknown) aleve at 720am. (units (unknown) date) unknown) (unknown) (no (unknown) (unknown) benzonatate 100 mg (units (unknown) date) capsule 100 mg PO unknown) BID PRN cough #20 caps 11/08/21 [Rx (unknown) (no (unknown) (unknown) codeine Allergy (units (unknown) date) (Verified 04/22/22 unknown) 10:12) (unknown) (no (unknown) (unknown) ergocalciferol (units (unknown) date) (vitamin D2) 1,250 unknown) mcg (50,000 unit) capsule 1,250 mcg PO QWEEK (unknown) (no (unknown) (unknown) have occurred. If (units (unknown) date) there are any unknown) questions, please contact the Medical Records (unknown) (no (unknown) (unknown) household members: (units (unknown) date) spouse and children unknown) (unknown) (no (unknown) (unknown) inhalational (units (u nknown) date) spacing device (Juaquin unknown) Aerosol Corson Enhancer spacer) #1 ea 11/08/21 (unknown) (no (unknown) (unknown) latex Adverse (units ( unknown) date) Reaction (Verified unknown) 04/22/22 10:12) (unknown) (no (unknown) (unknown) may occur. (units (unk nown) date) Occasional unknown) wrong-word or 'sound-alike' substitutions may have (unknown) (no (unknown) (unknown) morphine Allergy (units (unknown) date) (Verified 04/22/22 unknown) 10:12) (unknown) (no (unknown) (unknown) occurred due to (units (unknown) date) the inherent unknown) limitations of voice recognition software. Please (unknown) (no (unknown) (unknown) read the note (units ( unknown) date) carefully and unknown) recognize, using context, where these substitutions (unknown) (no (unknown) (unknown) shortness of (units (u nknown) date) breath or wheezing unknown) #6.7 grams 11/08/21 [Rx Confirmed 04/22/22] (unknown) (no (unknown) (unknown) software. Although (units (unknown) date) every effort is unknown) made to edit content, oyster picker errors (unknown) (no (unknown) (unknown) venlafaxine 75 mg (units (unknown) date) capsule,extended unknown) release 24 hr 75 mg PO DAILY #90 caps Result panel 4 (unknown) (no (unknown) (unknown) (no value) (units (unk nown) date) unknown) (unknown) (no (unknown) (unknown) (no value) (units (unk nown) date) unknown) (unknown) (no (unknown) (unknown) (no value) (units (unk nown) date) unknown) (unknown) (no (unknown) (unknown) 04/22/22 (units (unkno wn) date) unknown) (unknown) (no (unknown) (unknown) 10:12 (units (unkno wn) date) unknown) (unknown) (no (unknown) (unknown) [facility] (units (unknown) date) Medicine unknown) (unknown) (no (unknown) (unknown) [place] (units ( unknown) date) [id number] unknown) (unknown) (no (unknown) (unknown) Draft (units (unkno wn) date) unknown) (unknown) (no (unknown) (unknown) Family Practice (units (unknown) date) Office Visit unknown) (unknown) (no (unknown) (unknown) Hives (units (unkno wn) date) unknown) (unknown) (no (unknown) (unknown) (no value) (units (unk nown) date) unknown) (unknown) (no (unknown) (unknown) Patient states she (units (unknown) date) has a history of unknown) migraines, and symptoms are similar. She (unknown) (no (unknown) (unknown) #12 caps 09/10/21 (units (unknown) date) [Rx Confirmed unknown) 04/22/22] (unknown) (no (unknown) (unknown) 01/14/22 [Rx (units (u nknown) date) Confirmed 04/22/22] unknown) (unknown) (no (unknown) (unknown) [id number] (units (unkno wn) date) unknown) (unknown) (no (unknown) (unknown) 04/22/22 (units (unkno wn) date) unknown) (unknown) (no (unknown) (unknown) ADHD (units (unkno wn) date) unknown) (unknown) (no (unknown) (unknown) Age/Sex: 21 / F (units (unknown) date) Date of Service: unknown) (unknown) (no (unknown) (unknown) Allergic rhinitis (units (unknown) date) unknown) (unknown) (no (unknown) (unknown) Allergies (units (unkn own) date) unknown) (unknown) (no (unknown) (unknown) Anxiety (units (unkno wn) date) unknown) (unknown) (no (unknown) (unknown) Asthma (units (unkno wn) date) unknown) (unknown) (no (unknown) (unknown) Attending Dr: (units ( unknown) date) María SAMSON unknown) (unknown) (no (unknown) (unknown) BP 124/80 (units (u nknown) date) unknown) (unknown) (no (unknown) (unknown) Blood Pressure (units (unknown) date) Location Lt unknown) brachial (unknown) (no (unknown) (unknown) Chief Complaint (units (unknown) date) unknown) (unknown) (no (unknown) (unknown) Chief Complaint: (units (unknown) date) Headache unknown) (unknown) (no (unknown) (unknown) Chronic back pain (units (unknown) date) unknown) (unknown) (no (unknown) (unknown) Confirmed (units (unkn own) date) 04/22/22] unknown) (unknown) (no (unknown) (unknown) Const (units (unkno wn) date) unknown) (unknown) (no (unknown) (unknown) : 2000 (units (unknown) date) Acct:[id number] unknown) (unknown) (no (unknown) (unknown) Dept at (units (unkno wn) date) . unknown) (unknown) (no (unknown) (unknown) Details: (units (unkno wn) date) unknown) (unknown) (no (unknown) (unknown) Documented By: (units (unknown) date) María Alvarez unknown) 04/22/22 1009 (unknown) (no (unknown) (unknown) Exam (units (unkno wn) date) unknown) (unknown) (no (unknown) (unknown) General: (units (unkno wn) date) cooperative and unknown) healthy appearing (unknown) (no (unknown) (unknown) HPI (units (unkno wn) date) unknown) (unknown) (no (unknown) (unknown) Hyperandrogenism (units (unknown) date) unknown) (unknown) (no (unknown) (unknown) Intake (units (unkno wn) date) unknown) (unknown) (no (unknown) (unknown) Intake Note: (units (u nknown) date) unknown) (unknown) (no (unknown) (unknown) Intake performed (units (unknown) date) by: Artemio Pettit unknown) (unknown) (no (unknown) (unknown) Intake- Clincial (units (unknown) date) Staff unknown) (unknown) (no (unknown) (unknown) Last Menstural (units (unknown) date) Cycle + Details unknown) (unknown) (no (unknown) (unknown) Loc: [facility] (units (unkno wn) date) unknown) (unknown) (no (unknown) (unknown) Major depressive (units (unknown) date) disorder unknown) (unknown) (no (unknown) (unknown) Medical History (units (unknown) date) (Reviewed 01/14/22 unknown) @ 16:29 by CHAPIN Barbosa) (unknown) (no (unknown) (unknown) Medications (units (un known) date) unknown) (unknown) (no (unknown) (unknown) Migraines (units (unkn own) date) unknown) (unknown) (no (unknown) (unknown) Other Menstrual (units (unknown) date) Period: Other unknown) (unknown) (no (unknown) (unknown) Oxygen Delivery (units (unknown) date) Method room air unknown) (unknown) (no (unknown) (unknown) PFSH (units (unkno wn) date) unknown) (unknown) (no (unknown) (unknown) Patient denies (units ( unknown) date) visual changes. unknown) She has tried Excedrin and Aleve. She is alert, (unknown) (no (unknown) (unknown) Patient presents (units (unknown) date) walk-in clinic with unknown) complaints of headache/migraine for 4 days. (unknown) (no (unknown) (unknown) Patient: (units (unkno wn) date) [facility] unknown) MR#: [id number] (unknown) (no (unknown) (unknown) Penicillins (units (un known) date) Allergy (Verified unknown) 04/22/22 10:12) (unknown) (no (unknown) (unknown) Position (units (unkno wn) date) Sitting unknown) (unknown) (no (unknown) (unknown) Pt presents with a (units (unknown) date) migraine. No other unknown) symptoms. Has had it since wednesday. Took (unknown) (no (unknown) (unknown) Pulse 83 (units (un known) date) unknown) (unknown) (no (unknown) (unknown) Pulse Oximetry (%) (units (unknown) date) 98 unknown) (unknown) (no (unknown) (unknown) Pulse Source (units (u nknown) date) Monitor unknown) (unknown) (no (unknown) (unknown) Reason For Visit (units (unknown) date) unknown) (unknown) (no (unknown) (unknown) Respiration 16 (units (unknown) date) unknown) (unknown) (no (unknown) (unknown) Signed By: (units (unk nown) date) unknown) (unknown) (no (unknown) (unknown) Smoking Status: (units (unknown) date) Never smoker unknown) (unknown) (no (unknown) (unknown) Social History (units (unknown) date) unknown) (unknown) (no (unknown) (unknown) Tachycardia (units (un known) date) unknown) (unknown) (no (unknown) (unknown) Temp 97.9 F (units (unknown) date) unknown) (unknown) (no (unknown) (unknown) Temp Source (units (un known) date) Skin unknown) (unknown) (no (unknown) (unknown) This note may have (units (unknown) date) been all or unknown) partially generated using voice recognition (unknown) (no (unknown) (unknown) Tobacco + (units (unkn own) date) Substance Use unknown) (unknown) (no (unknown) (unknown) Tobacco Status (units (unknown) date) unknown) (unknown) (no (unknown) (unknown) Visit Reasons: (units (unknown) date) Migraine unknown) (unknown) (no (unknown) (unknown) Vitals (units (unkno wn) date) unknown) (unknown) (no (unknown) (unknown) Weight 231 lb 8 (units (unknown) date) oz unknown) (unknown) (no (unknown) (unknown) [Rx Confirmed (units ( unknown) date) 04/22/22] unknown) (unknown) (no (unknown) (unknown) albuterol sulfate (units (unknown) date) 90 mcg/actuation unknown) aerosol inhaler 2 puff inhalation Q6H PRN (unknown) (no (unknown) (unknown) alcohol intake: (units (unknown) date) current unknown) (unknown) (no (unknown) (unknown) aleve at 720am. (units (unknown) date) unknown) (unknown) (no (unknown) (unknown) benzonatate 100 mg (units (unknown) date) capsule 100 mg PO unknown) BID PRN cough #20 caps 11/08/21 [Rx (unknown) (no (unknown) (unknown) codeine Allergy (units (unknown) date) (Verified 04/22/22 unknown) 10:12) (unknown) (no (unknown) (unknown) describes pain (units (unknown) date) behind both eyes, unknown) sharp pain, photophobia nausea and vomiting. (unknown) (no (unknown) (unknown) does note that this (units (unknown) date) migraine has seem unknown) to gone on longer than her past once. She (unknown) (no (unknown) (unknown) ergocalciferol (units (unknown) date) (vitamin D2) 1,250 unknown) mcg (50,000 unit) capsule 1,250 mcg PO QWEEK (unknown) (no (unknown) (unknown) have occurred. If (units (unknown) date) there are any unknown) questions, please contact the Medical Records (unknown) (no (unknown) (unknown) household members: (units (unknown) date) spouse and children unknown) (unknown) (no (unknown) (unknown) inhalational (units (u nknown) date) spacing device ([place] unknown) Aerosol Corson Enhancer spacer) #1 ea 11/08/21 (unknown) (no (unknown) (unknown) latex Adverse (units ( unknown) date) Reaction (Verified unknown) 04/22/22 10:12) (unknown) (no (unknown) (unknown) may occur. (units (unk nown) date) Occasional unknown) wrong-word or 'sound-alike' substitutions may have (unknown) (no (unknown) (unknown) morphine Allergy (units (unknown) date) (Verified 04/22/22 unknown) 10:12) (unknown) (no (unknown) (unknown) occurred due to (units (unknown) date) the inherent unknown) limitations of voice recognition software. Please (unknown) (no (unknown) (unknown) oriented and (units (u nknown) date) comfortable. unknown) (unknown) (no (unknown) (unknown) read the note (units ( unknown) date) carefully and unknown) recognize, using context, where these substitutions (unknown) (no (unknown) (unknown) shortness of (units (u nknown) date) breath or wheezing unknown) #6.7 grams 11/08/21 [Rx Confirmed 04/22/22] (unknown) (no (unknown) (unknown) software. Although (units (unknown) date) every effort is unknown) made to edit content, oyster picker errors (unknown) (no (unknown) (unknown) venlafaxine 75 mg (units (unknown) date) capsule,extended unknown) release 24 hr 75 mg PO DAILY #90 caps Result panel 5 (unknown) (no (unknown) (unknown) (no value) (units (unk nown) date) unknown) (unknown) (no (unknown) (unknown) Medications: (units (u nknown) date) unknown) (unknown) (no (unknown) (unknown) Qualifiers: (units (un known) date) unknown) (unknown) (no (unknown) (unknown) (no value) (units (unk nown) date) unknown) (unknown) (no (unknown) (unknown) (no value) (units (unk nown) date) unknown) (unknown) (no (unknown) (unknown) 04/22/22 (units (unkno wn) date) unknown) (unknown) (no (unknown) (unknown) 10:12 (units (unkno wn) date) unknown) (unknown) (no (unknown) (unknown) [facility] (units (unknown) date) Medicine unknown) (unknown) (no (unknown) (unknown) [place] (units ( unknown) date) [id number] unknown) (unknown) (no (unknown) (unknown) Draft (units (unkno wn) date) unknown) (unknown) (no (unknown) (unknown) Family Practice (units (unknown) date) Office Visit unknown) (unknown) (no (unknown) (unknown) Hives (units (unkno wn) date) unknown) (unknown) (no (unknown) (unknown) Migraine type: (units (unknown) date) unspecified Status unknown) migrainosus presence: without status (unknown) (no (unknown) (unknown) (no value) (units (unk nown) date) unknown) (unknown) (no (unknown) (unknown) Patient states she (units (unknown) date) has a history of unknown) migraines, and symptoms are similar. She (unknown) (no (unknown) (unknown) #12 caps 09/10/21 (units (unknown) date) [Rx Confirmed unknown) 04/22/22] (unknown) (no (unknown) (unknown) (1) Migraine: (units ( unknown) date) unknown) (unknown) (no (unknown) (unknown) (2) Nausea + (units (u nknown) date) vomiting: unknown) (unknown) (no (unknown) (unknown) 01/14/22 [Rx (units (u nknown) date) Confirmed 04/22/22] unknown) (unknown) (no (unknown) (unknown) [id number] (units (unkno wn) date) unknown) (unknown) (no (unknown) (unknown) 04/22/22 (units (unkno wn) date) unknown) (unknown) (no (unknown) (unknown) ADHD (units (unkno wn) date) unknown) (unknown) (no (unknown) (unknown) Age/Sex: 21 / F (units (unknown) date) Date of Service: unknown) (unknown) (no (unknown) (unknown) Allergic rhinitis (units (unknown) date) unknown) (unknown) (no (unknown) (unknown) Allergies (units (unkn own) date) unknown) (unknown) (no (unknown) (unknown) Anxiety (units (unkno wn) date) unknown) (unknown) (no (unknown) (unknown) Assessment + Plan (units (unknown) date) unknown) (unknown) (no (unknown) (unknown) Asthma (units (unkno wn) date) unknown) (unknown) (no (unknown) (unknown) Attending Dr: (units ( unknown) date) María SAMSON unknown) (unknown) (no (unknown) (unknown) Auscultation: (units ( unknown) date) clear to unknown) auscultation bilaterally (unknown) (no (unknown) (unknown) BP 124/80 (units (u nknown) date) unknown) (unknown) (no (unknown) (unknown) Blood Pressure (units (unknown) date) Location Lt unknown) brachial (unknown) (no (unknown) (unknown) Chief Complaint (units (unknown) date) unknown) (unknown) (no (unknown) (unknown) Chief Complaint: (units (unknown) date) Headache unknown) (unknown) (no (unknown) (unknown) Chronic back pain (units (unknown) date) unknown) (unknown) (no (unknown) (unknown) Confirmed (units (unkn own) date) 04/22/22] unknown) (unknown) (no (unknown) (unknown) Const (units (unkno wn) date) unknown) (unknown) (no (unknown) (unknown) : 2000 (units (unknown) date) Acct:[id number] unknown) (unknown) (no (unknown) (unknown) Dept at (units (unkno wn) date) . unknown) (unknown) (no (unknown) (unknown) Details: (units (unkno wn) date) unknown) (unknown) (no (unknown) (unknown) Documented By: (units (unknown) date) María Alvarez unknown) 04/22/22 1009 (unknown) (no (unknown) (unknown) Ears: hearing (units ( unknown) date) grossly normal unknown) bilaterally (unknown) (no (unknown) (unknown) Effort + (units (unkno wn) date) Inspection: normal unknown) respiratory effort (unknown) (no (unknown) (unknown) Exam (units (unkno wn) date) unknown) (unknown) (no (unknown) (unknown) Eyes (units (unkno wn) date) unknown) (unknown) (no (unknown) (unknown) Face and sinus: (units (unknown) date) normal facial exam unknown) (unknown) (no (unknown) (unknown) General: (units (unkno wn) date) appearance normal, unknown) both eyes and all related structures (unknown) (no (unknown) (unknown) General: (units (o wn) date) cooperative, unknown) healthy appearing, comfortable and no acute distress (unknown) (no (unknown) (unknown) General: no rashes (units (unknown) date) or lesions noted unknown) (unknown) (no (unknown) (unknown) HENMT (units (unkno wn) date) unknown) (unknown) (no (unknown) (unknown) HPI (units (unkno wn) date) unknown) (unknown) (no (unknown) (unknown) HPI and exam (units (u nknown) date) indicate migraine unknown) which patient has typical symptoms for. 15 mg (unknown) (no (unknown) (unknown) Head: normal to (units (unknown) date) inspection and unknown) normocephalic (unknown) (no (unknown) (unknown) Hyperandrogenism (units (unknown) date) unknown) (unknown) (no (unknown) (unknown) Intake (units (unkno wn) date) unknown) (unknown) (no (unknown) (unknown) Intake Note: (units (u nknown) date) unknown) (unknown) (no (unknown) (unknown) Intake performed (units (unknown) date) by: Artemio Pettit unknown) (unknown) (no (unknown) (unknown) Intake- Clincial (units (unknown) date) Staff unknown) (unknown) (no (unknown) (unknown) Last Menstural (units (unknown) date) Cycle + Details unknown) (unknown) (no (unknown) (unknown) Loc: [facility] (units (unkno wn) date) unknown) (unknown) (no (unknown) (unknown) Major depressive (units (unknown) date) disorder unknown) (unknown) (no (unknown) (unknown) Medical History (units (unknown) date) (Reviewed 01/14/22 unknown) @ 16:29 by CHAPIN Barbosa) (unknown) (no (unknown) (unknown) Medications (units (un known) date) unknown) (unknown) (no (unknown) (unknown) Migraine, (units (unkn own) date) unspecified, not unknown) intractable, without status migrainosus (unknown) (no (unknown) (unknown) Migraines (units (unkn own) date) unknown) (unknown) (no (unknown) (unknown) Neck (units (unkno wn) date) unknown) (unknown) (no (unknown) (unknown) Neck: normal (units (u nknown) date) visual inspection unknown) and full ROM (unknown) (no (unknown) (unknown) New (units (unkno wn) date) unknown) (unknown) (no (unknown) (unknown) Other Menstrual (units (unknown) date) Period: Other unknown) (unknown) (no (unknown) (unknown) Oxygen Delivery (units (unknown) date) Method room air unknown) (unknown) (no (unknown) (unknown) PFSH (units (unkno wn) date) unknown) (unknown) (no (unknown) (unknown) Patient denies (units ( unknown) date) visual changes. unknown) She has tried Excedrin and Aleve. She is alert, (unknown) (no (unknown) (unknown) Patient presents (units (unknown) date) walk-in clinic with unknown) complaints of headache/migraine for 4 days. (unknown) (no (unknown) (unknown) Patient: (units (unkno wn) date) Nu Matthew O unknown) MR#: [id number] (unknown) (no (unknown) (unknown) Penicillins (units (un known) date) Allergy (Verified unknown) 04/22/22 10:12) (unknown) (no (unknown) (unknown) Plan (units (unkno wn) date) unknown) (unknown) (no (unknown) (unknown) Position (units (unkno wn) date) Sitting unknown) (unknown) (no (unknown) (unknown) Pt presents with a (units (unknown) date) migraine. No other unknown) symptoms. Has had it since wednesday. Took (unknown) (no (unknown) (unknown) Pulse 83 (units (un known) date) unknown) (unknown) (no (unknown) (unknown) Pulse Oximetry (%) (units (unknown) date) 98 unknown) (unknown) (no (unknown) (unknown) Pulse Source (units (u nknown) date) Monitor unknown) (unknown) (no (unknown) (unknown) Reason For Visit (units (unknown) date) unknown) (unknown) (no (unknown) (unknown) Resp (units (unkno wn) date) unknown) (unknown) (no (unknown) (unknown) Respiration 16 (units (unknown) date) unknown) (unknown) (no (unknown) (unknown) Signed By: (units (unk nown) date) unknown) (unknown) (no (unknown) (unknown) Skin (units (unkno wn) date) unknown) (unknown) (no (unknown) (unknown) Smoking Status: (units (unknown) date) Never smoker unknown) (unknown) (no (unknown) (unknown) Social History (units (unknown) date) unknown) (unknown) (no (unknown) (unknown) Tachycardia (units (un known) date) unknown) (unknown) (no (unknown) (unknown) Temp 97.9 F (units (unknown) date) unknown) (unknown) (no (unknown) (unknown) Temp Source (units (un known) date) Skin unknown) (unknown) (no (unknown) (unknown) This note may have (units (unknown) date) been all or unknown) partially generated using voice recognition (unknown) (no (unknown) (unknown) Tobacco + (units (unkn own) date) Substance Use unknown) (unknown) (no (unknown) (unknown) Tobacco Status (units (unknown) date) unknown) (unknown) (no (unknown) (unknown) Toradol given IM. (units (unknown) date) Zofran will be sent unknown) to her pharmacy. Rest, increase fluids (unknown) (no (unknown) (unknown) Visit Reasons: (units (unknown) date) Migraine unknown) (unknown) (no (unknown) (unknown) Vitals (units (unkno wn) date) unknown) (unknown) (no (unknown) (unknown) Weight 231 lb 8 (units (unknown) date) oz unknown) (unknown) (no (unknown) (unknown) [Rx Confirmed (units ( unknown) date) 04/22/22] unknown) (unknown) (no (unknown) (unknown) albuterol sulfate (units (unknown) date) 90 mcg/actuation unknown) aerosol inhaler 2 puff inhalation Q6H PRN (unknown) (no (unknown) (unknown) alcohol intake: (units (unknown) date) current unknown) (unknown) (no (unknown) (unknown) aleve at 720am. (units (unknown) date) unknown) (unknown) (no (unknown) (unknown) and electrolytes. (units (unknown) date) Return or to the unknown) emergency department if symptoms do not (unknown) (no (unknown) (unknown) benzonatate 100 mg (units (unknown) date) capsule 100 mg PO unknown) BID PRN cough #20 caps 11/08/21 [Rx (unknown) (no (unknown) (unknown) codeine Allergy (units (unknown) date) (Verified 04/22/22 unknown) 10:12) (unknown) (no (unknown) (unknown) describes pain (units (unknown) date) behind both eyes, unknown) sharp pain, photophobia nausea and vomiting. (unknown) (no (unknown) (unknown) does note that this (units (unknown) date) migraine has seem unknown) to gone on longer than her past once. She (unknown) (no (unknown) (unknown) ergocalciferol (units (unknown) date) (vitamin D2) 1,250 unknown) mcg (50,000 unit) capsule 1,250 mcg PO QWEEK (unknown) (no (unknown) (unknown) have occurred. If (units (unknown) date) there are any unknown) questions, please contact the Medical Records (unknown) (no (unknown) (unknown) household members: (units (unknown) date) spouse and children unknown) (unknown) (no (unknown) (unknown) improve or worsen. (units (unknown) date) Follow-up with unknown) primary care (unknown) (no (unknown) (unknown) inhalational (units (u nknown) date) spacing device ([place] unknown) Aerosol Corson Enhancer spacer) #1 ea 11/08/21 (unknown) (no (unknown) (unknown) latex Adverse (units ( unknown) date) Reaction (Verified unknown) 04/22/22 10:12) (unknown) (no (unknown) (unknown) may occur. (units (unk nown) date) Occasional unknown) wrong-word or 'sound-alike' substitutions may have (unknown) (no (unknown) (unknown) migrainosus (units (un known) date) Intractability: not unknown) intractable Qualified Code(s): G43.909 - (unknown) (no (unknown) (unknown) morphine Allergy (units (unknown) date) (Verified 04/22/22 unknown) 10:12) (unknown) (no (unknown) (unknown) occurred due to (units (unknown) date) the inherent unknown) limitations of voice recognition software. Please (unknown) (no (unknown) (unknown) ondansetron 4 mg (units (unknown) date) PO Q8H PRN 14 tabs unknown) 0RF nausea and vomiting R11.2 - Nausea with (unknown) (no (unknown) (unknown) ondansetron 4 mg (units (unknown) date) disintegrating unknown) tablet 4 mg PO Q8H PRN nausea and vomiting #14 (unknown) (no (unknown) (unknown) oriented and (units (u nknown) date) comfortable. unknown) (unknown) (no (unknown) (unknown) read the note (units ( unknown) date) carefully and unknown) recognize, using context, where these substitutions (unknown) (no (unknown) (unknown) shortness of (units (u nknown) date) breath or wheezing unknown) #6.7 grams 11/08/21 [Rx Confirmed 04/22/22] (unknown) (no (unknown) (unknown) software. Although (units (unknown) date) every effort is unknown) made to edit content, oyster picker errors (unknown) (no (unknown) (unknown) tabs 04/22/22 [Rx (units (unknown) date) Confirmed 04/22/22] unknown) (unknown) (no (unknown) (unknown) venlafaxine 75 mg (units (unknown) date) capsule,extended unknown) release 24 hr 75 mg PO DAILY #90 caps (unknown) (no (unknown) (unknown) vomiting, (units (unkn own) date) unspecified unknown) Result panel 6 (unknown) (no (unknown) (unknown) (no value) (units (unk nown) date) unknown) (unknown) (no (unknown) (unknown) Medications: (units (u nknown) date) unknown) (unknown) (no (unknown) (unknown) Orders: (units (unkno wn) date) unknown) (unknown) (no (unknown) (unknown) Qualifiers: (units (un known) date) unknown) (unknown) (no (unknown) (unknown) (no value) (units (unk nown) date) unknown) (unknown) (no (unknown) (unknown) (no value) (units (unk nown) date) unknown) (unknown) (no (unknown) (unknown) 04/22/22 (units (unkno wn) date) unknown) (unknown) (no (unknown) (unknown) 10:12 (units (unkno wn) date) unknown) (unknown) (no (unknown) (unknown) [facility] (units (unknown) date) Medicine unknown) (unknown) (no (unknown) (unknown) [place], [place] (units ( unknown) date) [id number] unknown) (unknown) (no (unknown) (unknown) Dose Route (units (unknown) date) Admin Location Lot unknown) Number Expiration Date NDC (unknown) (no (unknown) (unknown) Draft (units (unkno wn) date) unknown) (unknown) (no (unknown) (unknown) [facility] (units (unknown) date) Office Visit unknown) (unknown) (no (unknown) (unknown) Hives (units (unkno wn) date) unknown) (unknown) (no (unknown) (unknown) Intractability: (units (unknown) date) not intractable unknown) Migraine type: unspecified Status (unknown) (no (unknown) (unknown) (no value) (units (unk nown) date) unknown) (unknown) (no (unknown) (unknown) Pressure Dispatcher (units (u nknown) date) unknown) (unknown) (no (unknown) (unknown) Patient states she (units (unknown) date) has a history of unknown) migraines, and symptoms are similar. She (unknown) (no (unknown) (unknown) #12 caps 09/10/21 (units (unknown) date) [Rx Confirmed unknown) 04/22/22] (unknown) (no (unknown) (unknown) (1) Migraine: (units ( unknown) date) unknown) (unknown) (no (unknown) (unknown) (2) Nausea + (units (u nknown) date) vomiting: unknown) (unknown) (no (unknown) (unknown) 01/14/22 [Rx (units (u nknown) date) Confirmed 04/22/22] unknown) (unknown) (no (unknown) (unknown) [id number] (units (unkno wn) date) unknown) (unknown) (no (unknown) (unknown) 04/22/22 (units (unkno wn) date) unknown) (unknown) (no (unknown) (unknown) 30 mg IM Right (units (unknown) date) Delt [id number] unknown) 12/29/23 [id number] [facility] (unknown) (no (unknown) (unknown) ADHD (units (unkno wn) date) unknown) (unknown) (no (unknown) (unknown) Administered by: (units (unknown) date) Artemio Pettit MA unknown) on 04/22/22 10:32 (unknown) (no (unknown) (unknown) Age/Sex: 21 / F (units (unknown) date) Date of Service: unknown) (unknown) (no (unknown) (unknown) Allergic rhinitis (units (unknown) date) unknown) (unknown) (no (unknown) (unknown) Allergies (units (unkn own) date) unknown) (unknown) (no (unknown) (unknown) Anxiety (units (unkno wn) date) unknown) (unknown) (no (unknown) (unknown) Assessment + Plan (units (unknown) date) unknown) (unknown) (no (unknown) (unknown) Asthma (units (unkno wn) date) unknown) (unknown) (no (unknown) (unknown) Attending Dr: (units ( unknown) date) María SAMSON unknown) (unknown) (no (unknown) (unknown) Auscultation: (units ( unknown) date) clear to unknown) auscultation bilaterally (unknown) (no (unknown) (unknown) BP 124/80 (units (u nknown) date) unknown) (unknown) (no (unknown) (unknown) Blood Pressure (units (unknown) date) Location Lt unknown) brachial (unknown) (no (unknown) (unknown) Chief Complaint (units (unknown) date) unknown) (unknown) (no (unknown) (unknown) Chief Complaint: (units (unknown) date) Headache unknown) (unknown) (no (unknown) (unknown) Chronic back pain (units (unknown) date) unknown) (unknown) (no (unknown) (unknown) Comments: .5ml (units (unknown) date) given unknown) (unknown) (no (unknown) (unknown) Confirmed (units (unkn own) date) 04/22/22] unknown) (unknown) (no (unknown) (unknown) Const (units (unkno wn) date) unknown) (unknown) (no (unknown) (unknown) : 2000 (units (unknown) date) Acct:[id number] unknown) (unknown) (no (unknown) (unknown) Dept at (units (unkno wn) date) . unknown) (unknown) (no (unknown) (unknown) Details: (units (unkno wn) date) unknown) (unknown) (no (unknown) (unknown) Documented By: (units (unknown) date) María Alvarez unknown) 04/22/22 1009 (unknown) (no (unknown) (unknown) Ears: hearing (units ( unknown) date) grossly normal unknown) bilaterally (unknown) (no (unknown) (unknown) Effort + (units (unkno wn) date) Inspection: normal unknown) respiratory effort (unknown) (no (unknown) (unknown) Exam (units (unkno wn) date) unknown) (unknown) (no (unknown) (unknown) Eyes (units (unkno wn) date) unknown) (unknown) (no (unknown) (unknown) Face and sinus: (units (unknown) date) normal facial exam unknown) (unknown) (no (unknown) (unknown) General: (units (unkno wn) date) appearance normal, unknown) both eyes and all related structures (unknown) (no (unknown) (unknown) General: (units (unkno wn) date) cooperative, unknown) healthy appearing, comfortable and no acute distress (unknown) (no (unknown) (unknown) General: no rashes (units (unknown) date) or lesions noted unknown) (unknown) (no (unknown) (unknown) HENMT (units (unkno wn) date) unknown) (unknown) (no (unknown) (unknown) HPI (units (unkno wn) date) unknown) (unknown) (no (unknown) (unknown) HPI and exam (units (u nknown) date) indicate migraine unknown) which patient has typical symptoms for. 15 mg (unknown) (no (unknown) (unknown) Head: normal to (units (unknown) date) inspection and unknown) normocephalic (unknown) (no (unknown) (unknown) Hyperandrogenism (units (unknown) date) unknown) (unknown) (no (unknown) (unknown) Intake (units (unkno wn) date) unknown) (unknown) (no (unknown) (unknown) Intake Note: (units (u nknown) date) unknown) (unknown) (no (unknown) (unknown) Intake performed (units (unknown) date) by: Artemio Pettit unknown) (unknown) (no (unknown) (unknown) Intake- Clincial (units (unknown) date) Staff unknown) (unknown) (no (unknown) (unknown) Last Menstural (units (unknown) date) Cycle + Details unknown) (unknown) (no (unknown) (unknown) Loc: [facility] (units (unkno wn) date) unknown) (unknown) (no (unknown) (unknown) Major depressive (units (unknown) date) disorder unknown) (unknown) (no (unknown) (unknown) Medical History (units (unknown) date) (Reviewed 01/14/22 unknown) @ 16:29 by CHAPIN Barbosa) (unknown) (no (unknown) (unknown) Medications (units (un known) date) unknown) (unknown) (no (unknown) (unknown) Migraine, (units (unkn own) date) unspecified, not unknown) intractable, without status migrainosus (unknown) (no (unknown) (unknown) Migraines (units (unkn own) date) unknown) (unknown) (no (unknown) (unknown) Neck (units (unkno wn) date) unknown) (unknown) (no (unknown) (unknown) Neck: normal (units (u nknown) date) visual inspection unknown) and full ROM (unknown) (no (unknown) (unknown) New (units (unkno wn) date) unknown) (unknown) (no (unknown) (unknown) Office Meds (units (un known) date) unknown) (unknown) (no (unknown) (unknown) Orders (units (unkno wn) date) unknown) (unknown) (no (unknown) (unknown) Other Menstrual (units (unknown) date) Period: Other unknown) (unknown) (no (unknown) (unknown) Oxygen Delivery (units (unknown) date) Method room air unknown) (unknown) (no (unknown) (unknown) PFSH (units (unkno wn) date) unknown) (unknown) (no (unknown) (unknown) Patient denies (units ( unknown) date) visual changes. unknown) She has tried Excedrin and Aleve. She is alert, (unknown) (no (unknown) (unknown) Patient presents (units (unknown) date) walk-in clinic with unknown) complaints of headache/migraine for 4 days. (unknown) (no (unknown) (unknown) Patient: (units (unkno wn) date) Nu Matthew O unknown) MR#: [id number] (unknown) (no (unknown) (unknown) Penicillins (units (un known) date) Allergy (Verified unknown) 04/22/22 10:12) (unknown) (no (unknown) (unknown) Performing (units (unk nown) date) Provider: María unknown) CHAPIN Alvarez (unknown) (no (unknown) (unknown) Plan (units (unkno wn) date) unknown) (unknown) (no (unknown) (unknown) Position (units (unkno wn) date) Sitting unknown) (unknown) (no (unknown) (unknown) Pt presents with a (units (unknown) date) migraine. No other unknown) symptoms. Has had it since wednesday. Took (unknown) (no (unknown) (unknown) Pulse 83 (units (un known) date) unknown) (unknown) (no (unknown) (unknown) Pulse Oximetry (%) (units (unknown) date) 98 unknown) (unknown) (no (unknown) (unknown) Pulse Source (units (u nknown) date) Monitor unknown) (unknown) (no (unknown) (unknown) Reason For Visit (units (unknown) date) unknown) (unknown) (no (unknown) (unknown) Resp (units (unkno wn) date) unknown) (unknown) (no (unknown) (unknown) Respiration 16 (units (unknown) date) unknown) (unknown) (no (unknown) (unknown) Signed By: (units (unk nown) date) unknown) (unknown) (no (unknown) (unknown) Skin (units (unkno wn) date) unknown) (unknown) (no (unknown) (unknown) Smoking Status: (units (unknown) date) Never smoker unknown) (unknown) (no (unknown) (unknown) Social History (units (unknown) date) unknown) (unknown) (no (unknown) (unknown) Tachycardia (units (un known) date) unknown) (unknown) (no (unknown) (unknown) Temp 97.9 F (units (unknown) date) unknown) (unknown) (no (unknown) (unknown) Temp Source (units (un known) date) Skin unknown) (unknown) (no (unknown) (unknown) This note may have (units (unknown) date) been all or unknown) partially generated using voice recognition (unknown) (no (unknown) (unknown) Tobacco + (units (unkn own) date) Substance Use unknown) (unknown) (no (unknown) (unknown) Tobacco Status (units (unknown) date) unknown) (unknown) (no (unknown) (unknown) Toradol 30mg Today (units (unknown) date) R51.9 - Headache, unknown) unspecified (unknown) (no (unknown) (unknown) Toradol given IM. (units (unknown) date) Ayden will be sent unknown) to her pharmacy. Rest, increase fluids (unknown) (no (unknown) (unknown) Visit Reasons: (units (unknown) date) Migraine unknown) (unknown) (no (unknown) (unknown) Vitals (units (unkno wn) date) unknown) (unknown) (no (unknown) (unknown) Weight 231 lb 8 (units (unknown) date) oz unknown) (unknown) (no (unknown) (unknown) [Rx Confirmed (units ( unknown) date) 04/22/22] unknown) (unknown) (no (unknown) (unknown) albuterol sulfate (units (unknown) date) 90 mcg/actuation unknown) aerosol inhaler 2 puff inhalation Q6H PRN (unknown) (no (unknown) (unknown) alcohol intake: (units (unknown) date) current unknown) (unknown) (no (unknown) (unknown) aleve at 720am. (units (unknown) date) unknown) (unknown) (no (unknown) (unknown) and electrolytes. (units (unknown) date) Return or to the unknown) emergency department if symptoms do not (unknown) (no (unknown) (unknown) benzonatate 100 mg (units (unknown) date) capsule 100 mg PO unknown) BID PRN cough #20 caps 11/08/21 [Rx (unknown) (no (unknown) (unknown) codeine Allergy (units (unknown) date) (Verified 04/22/22 unknown) 10:12) (unknown) (no (unknown) (unknown) describes pain (units (unknown) date) behind both eyes, unknown) sharp pain, photophobia nausea and vomiting. (unknown) (no (unknown) (unknown) does note that this (units (unknown) date) migraine has seem unknown) to gone on longer than her past once. She (unknown) (no (unknown) (unknown) ergocalciferol (units (unknown) date) (vitamin D2) 1,250 unknown) mcg (50,000 unit) capsule 1,250 mcg PO QWEEK (unknown) (no (unknown) (unknown) have occurred. If (units (unknown) date) there are any unknown) questions, please contact the Medical Records (unknown) (no (unknown) (unknown) household members: (units (unknown) date) spouse and children unknown) (unknown) (no (unknown) (unknown) improve or worsen. (units (unknown) date) Follow-up with unknown) primary care (unknown) (no (unknown) (unknown) inhalational (units (u nknown) date) spacing device ([place] unknown) Aerosol Corson Enhancer spacer) #1 ea 11/08/21 (unknown) (no (unknown) (unknown) ketorolac (units (unkn own) date) unknown) (unknown) (no (unknown) (unknown) latex Adverse (units ( unknown) date) Reaction (Verified unknown) 04/22/22 10:12) (unknown) (no (unknown) (unknown) may occur. (units (unk nown) date) Occasional unknown) wrong-word or 'sound-alike' substitutions may have (unknown) (no (unknown) (unknown) migrainosus (units (un known) date) presence: without unknown) status migrainosus Qualified Code(s): G43.909 - (unknown) (no (unknown) (unknown) morphine Allergy (units (unknown) date) (Verified 04/22/22 unknown) 10:12) (unknown) (no (unknown) (unknown) occurred due to (units (unknown) date) the inherent unknown) limitations of voice recognition software. Please (unknown) (no (unknown) (unknown) ondansetron 4 mg (units (unknown) date) PO Q8H PRN 14 tabs unknown) 0RF nausea and vomiting R11.2 - Nausea with (unknown) (no (unknown) (unknown) ondansetron 4 mg (units (unknown) date) disintegrating unknown) tablet 4 mg PO Q8H PRN nausea and vomiting #14 (unknown) (no (unknown) (unknown) oriented and (units (u nknown) date) comfortable. unknown) (unknown) (no (unknown) (unknown) read the note (units ( unknown) date) carefully and unknown) recognize, using context, where these substitutions (unknown) (no (unknown) (unknown) shortness of (units (u nknown) date) breath or wheezing unknown) #6.7 grams 11/08/21 [Rx Confirmed 04/22/22] (unknown) (no (unknown) (unknown) software. Although (units (unknown) date) every effort is unknown) made to edit content, oyster picker errors (unknown) (no (unknown) (unknown) tabs 04/22/22 [Rx (units (unknown) date) Confirmed 04/22/22] unknown) (unknown) (no (unknown) (unknown) venlafaxine 75 mg (units (unknown) date) capsule,extended unknown) release 24 hr 75 mg PO DAILY #90 caps (unknown) (no (unknown) (unknown) vomiting, (units (unkn own) date) unspecified unknown) Result panel 7 (unknown) (no (unknown) (unknown) (no value) (units (unk nown) date) unknown) (unknown) (no (unknown) (unknown) Medications: (units (u nknown) date) unknown) (unknown) (no (unknown) (unknown) Orders: (units (unkno wn) date) unknown) (unknown) (no (unknown) (unknown) Qualifiers: (units (un known) date) unknown) (unknown) (no (unknown) (unknown) (no value) (units (unk nown) date) unknown) (unknown) (no (unknown) (unknown) (no value) (units (unk nown) date) unknown) (unknown) (no (unknown) (unknown) 04/22/22 (units (unkno wn) date) unknown) (unknown) (no (unknown) (unknown) 04/22/22 1318 (units ( unknown) date) unknown) (unknown) (no (unknown) (unknown) 10:12 (units (unkno wn) date) unknown) (unknown) (no (unknown) (unknown) [facility] (units (unknown) date) Medicine unknown) (unknown) (no (unknown) (unknown) [place], [place] (units ( unknown) date) [id number] unknown) (unknown) (no (unknown) (unknown) Dose Route (units (unknown) date) Admin Location Lot unknown) Number Expiration Date NDC (unknown) (no (unknown) (unknown) [facility] (units (unknown) date) Office Visit unknown) (unknown) (no (unknown) (unknown) Hives (units (unkno wn) date) unknown) (unknown) (no (unknown) (unknown) Intractability: (units (unknown) date) not intractable unknown) Migraine type: unspecified Status (unknown) (no (unknown) (unknown) Signed (units (unkno wn) date) unknown) (unknown) (no (unknown) (unknown) Vomiting type: (units (unknown) date) unspecified unknown) Qualified Code(s): R11.2 - Nausea with (unknown) (no (unknown) (unknown) (no value) (units (unk nown) date) unknown) (unknown) (no (unknown) (unknown) Pressure Dispatcher (units (u nknown) date) unknown) (unknown) (no (unknown) (unknown) Patient states she (units (unknown) date) has a history of unknown) migraines, and symptoms are similar. She (unknown) (no (unknown) (unknown) #12 caps 09/10/21 (units (unknown) date) [Rx Confirmed unknown) 04/22/22] (unknown) (no (unknown) (unknown) (1) Migraine: (units ( unknown) date) unknown) (unknown) (no (unknown) (unknown) (2) Nausea + (units (u nknown) date) vomiting: unknown) (unknown) (no (unknown) (unknown) 01/14/22 [Rx (units (u nknown) date) Confirmed 04/22/22] unknown) (unknown) (no (unknown) (unknown) [id number] (units (unkno wn) date) unknown) (unknown) (no (unknown) (unknown) 04/22/22 (units (unkno wn) date) unknown) (unknown) (no (unknown) (unknown) 30 mg IM Right (units (unknown) date) Delt [id number] unknown) 12/29/23 [id number] [facility] (unknown) (no (unknown) (unknown) ADHD (units (unkno wn) date) unknown) (unknown) (no (unknown) (unknown) Administered by: (units (unknown) date) Artemio Pettit MA unknown) on 04/22/22 10:32 (unknown) (no (unknown) (unknown) Age/Sex: 21 / F (units (unknown) date) Date of Service: unknown) (unknown) (no (unknown) (unknown) Allergic rhinitis (units (unknown) date) unknown) (unknown) (no (unknown) (unknown) Allergies (units (unkn own) date) unknown) (unknown) (no (unknown) (unknown) Anxiety (units (unkno wn) date) unknown) (unknown) (no (unknown) (unknown) Assessment + Plan (units (unknown) date) unknown) (unknown) (no (unknown) (unknown) Asthma (units (unkno wn) date) unknown) (unknown) (no (unknown) (unknown) Attending Dr: (units ( unknown) date) María SAMSON unknown) (unknown) (no (unknown) (unknown) Auscultation: (units ( unknown) date) clear to unknown) auscultation bilaterally (unknown) (no (unknown) (unknown) BP 124/80 (units (u nknown) date) unknown) (unknown) (no (unknown) (unknown) Blood Pressure (units (unknown) date) Location Lt unknown) brachial (unknown) (no (unknown) (unknown) Chief Complaint (units (unknown) date) unknown) (unknown) (no (unknown) (unknown) Chief Complaint: (units (unknown) date) Headache unknown) (unknown) (no (unknown) (unknown) Chronic back pain (units (unknown) date) unknown) (unknown) (no (unknown) (unknown) Comments: .5ml (units (unknown) date) given unknown) (unknown) (no (unknown) (unknown) Confirmed (units (unkn own) date) 04/22/22] unknown) (unknown) (no (unknown) (unknown) Const (units (unkno wn) date) unknown) (unknown) (no (unknown) (unknown) : 2000 (units (unknown) date) Acct:[id number] unknown) (unknown) (no (unknown) (unknown) Dept at (units (unkno wn) date) . unknown) (unknown) (no (unknown) (unknown) Details: (units (unkno wn) date) unknown) (unknown) (no (unknown) (unknown) Documented By: (units (unknown) date) María Alvarez HEALTH SERVICE COORDINATOR unknown) 04/22/22 1009 (unknown) (no (unknown) (unknown) Ears: hearing (units ( unknown) date) grossly normal unknown) bilaterally (unknown) (no (unknown) (unknown) Effort + (units (unkno wn) date) Inspection: normal unknown) respiratory effort (unknown) (no (unknown) (unknown) Exam (units (unkno wn) date) unknown) (unknown) (no (unknown) (unknown) Eyes (units (unkno wn) date) unknown) (unknown) (no (unknown) (unknown) Face and sinus: (units (unknown) date) normal facial exam unknown) (unknown) (no (unknown) (unknown) General: (units (o wn) date) appearance normal, unknown) both eyes and all related structures (unknown) (no (unknown) (unknown) General: (units (unkno wn) date) cooperative, unknown) healthy appearing, comfortable and no acute distress (unknown) (no (unknown) (unknown) General: no rashes (units (unknown) date) or lesions noted unknown) (unknown) (no (unknown) (unknown) HENMT (units (unkno wn) date) unknown) (unknown) (no (unknown) (unknown) HPI (units (unkno wn) date) unknown) (unknown) (no (unknown) (unknown) HPI and exam (units (u nknown) date) indicate migraine unknown) which patient has typical symptoms for. 30 mg (unknown) (no (unknown) (unknown) Head: normal to (units (unknown) date) inspection and unknown) normocephalic (unknown) (no (unknown) (unknown) Hyperandrogenism (units (unknown) date) unknown) (unknown) (no (unknown) (unknown) Intake (units (unkno wn) date) unknown) (unknown) (no (unknown) (unknown) Intake Note: (units (u nknown) date) unknown) (unknown) (no (unknown) (unknown) Intake performed (units (unknown) date) by: Artemio Pettit unknown) (unknown) (no (unknown) (unknown) Intake- Clincial (units (unknown) date) Staff unknown) (unknown) (no (unknown) (unknown) Last Menstural (units (unknown) date) Cycle + Details unknown) (unknown) (no (unknown) (unknown) Loc: [facility] (units (unkno wn) date) unknown) (unknown) (no (unknown) (unknown) Major depressive (units (unknown) date) disorder unknown) (unknown) (no (unknown) (unknown) Medical History (units (unknown) date) (Reviewed 01/14/22 unknown) @ 16:29 by CHAPIN Barbosa) (unknown) (no (unknown) (unknown) Medications (units (un known) date) unknown) (unknown) (no (unknown) (unknown) Migraine, (units (unkn own) date) unspecified, not unknown) intractable, without status migrainosus (unknown) (no (unknown) (unknown) Migraines (units (unkn own) date) unknown) (unknown) (no (unknown) (unknown) Neck (units (unkno wn) date) unknown) (unknown) (no (unknown) (unknown) Neck: normal (units (u nknown) date) visual inspection unknown) and full ROM (unknown) (no (unknown) (unknown) New (units (unkno wn) date) unknown) (unknown) (no (unknown) (unknown) Office Meds (units (un known) date) unknown) (unknown) (no (unknown) (unknown) Orders (units (unkno wn) date) unknown) (unknown) (no (unknown) (unknown) Other Menstrual (units (unknown) date) Period: Other unknown) (unknown) (no (unknown) (unknown) Oxygen Delivery (units (unknown) date) Method room air unknown) (unknown) (no (unknown) (unknown) PFSH (units (unkno wn) date) unknown) (unknown) (no (unknown) (unknown) Patient denies (units ( unknown) date) visual changes. unknown) She has tried Excedrin and Aleve. She is alert, (unknown) (no (unknown) (unknown) Patient presents (units (unknown) date) walk-in clinic with unknown) complaints of headache/migraine for 4 days. (unknown) (no (unknown) (unknown) Patient: (units (unkno wn) date) Nu Matthew O unknown) MR#: [id number] (unknown) (no (unknown) (unknown) Penicillins (units (un known) date) Allergy (Verified unknown) 04/22/22 10:12) (unknown) (no (unknown) (unknown) Performing (units (unk nown) date) Provider: María unknownCHAPIN Diggs (unknown) (no (unknown) (unknown) Plan (units (unkno wn) date) unknown) (unknown) (no (unknown) (unknown) Position (units (unkno wn) date) Sitting unknown) (unknown) (no (unknown) (unknown) Pt presents with a (units (unknown) date) migraine. No other unknown) symptoms. Has had it since wednesday. Took (unknown) (no (unknown) (unknown) Pulse 83 (units (un known) date) unknown) (unknown) (no (unknown) (unknown) Pulse Oximetry (%) (units (unknown) date) 98 unknown) (unknown) (no (unknown) (unknown) Pulse Source (units (u nknown) date) Monitor unknown) (unknown) (no (unknown) (unknown) Reason For Visit (units (unknown) date) unknown) (unknown) (no (unknown) (unknown) Resp (units (unkno wn) date) unknown) (unknown) (no (unknown) (unknown) Respiration 16 (units (unknown) date) unknown) (unknown) (no (unknown) (unknown) Signed By: (units (unk nown) date) <Electronically unknown) signed by María Alvarez> (unknown) (no (unknown) (unknown) Skin (units (unkno wn) date) unknown) (unknown) (no (unknown) (unknown) Smoking Status: (units (unknown) date) Never smoker unknown) (unknown) (no (unknown) (unknown) Social History (units (unknown) date) unknown) (unknown) (no (unknown) (unknown) Tachycardia (units (un known) date) unknown) (unknown) (no (unknown) (unknown) Temp 97.9 F (units (unknown) date) unknown) (unknown) (no (unknown) (unknown) Temp Source (units (un known) date) Skin unknown) (unknown) (no (unknown) (unknown) This note may have (units (unknown) date) been all or unknown) partially generated using voice recognition (unknown) (no (unknown) (unknown) Tobacco + (units (unkn own) date) Substance Use unknown) (unknown) (no (unknown) (unknown) Tobacco Status (units (unknown) date) unknown) (unknown) (no (unknown) (unknown) Toradol 30mg Today (units (unknown) date) R51.9 - Headache, unknown) unspecified (unknown) (no (unknown) (unknown) Toradol given IM. (units (unknown) date) Ayden will be sent unknown) to her pharmacy. Rest, increase fluids (unknown) (no (unknown) (unknown) Visit Reasons: (units (unknown) date) Migraine unknown) (unknown) (no (unknown) (unknown) Vitals (units (unkno wn) date) unknown) (unknown) (no (unknown) (unknown) Weight 231 lb 8 (units (unknown) date) oz unknown) (unknown) (no (unknown) (unknown) [Rx Confirmed (units ( unknown) date) 04/22/22] unknown) (unknown) (no (unknown) (unknown) albuterol sulfate (units (unknown) date) 90 mcg/actuation unknown) aerosol inhaler 2 puff inhalation Q6H PRN (unknown) (no (unknown) (unknown) alcohol intake: (units (unknown) date) current unknown) (unknown) (no (unknown) (unknown) aleve at 720am. (units (unknown) date) unknown) (unknown) (no (unknown) (unknown) and electrolytes. (units (unknown) date) Return or to the unknown) emergency department if symptoms do not (unknown) (no (unknown) (unknown) benzonatate 100 mg (units (unknown) date) capsule 100 mg PO unknown) BID PRN cough #20 caps 11/08/21 [Rx (unknown) (no (unknown) (unknown) codeine Allergy (units (unknown) date) (Verified 04/22/22 unknown) 10:12) (unknown) (no (unknown) (unknown) describes pain (units (unknown) date) behind both eyes, unknown) sharp pain, photophobia nausea and vomiting. (unknown) (no (unknown) (unknown) does note that this (units (unknown) date) migraine has seem unknown) to gone on longer than her past once. She (unknown) (no (unknown) (unknown) ergocalciferol (units (unknown) date) (vitamin D2) 1,250 unknown) mcg (50,000 unit) capsule 1,250 mcg PO QWEEK (unknown) (no (unknown) (unknown) have occurred. If (units (unknown) date) there are any unknown) questions, please contact the Medical Records (unknown) (no (unknown) (unknown) household members: (units (unknown) date) spouse and children unknown) (unknown) (no (unknown) (unknown) improve or worsen. (units (unknown) date) Follow-up with unknown) primary care (unknown) (no (unknown) (unknown) inhalational (units (u nknown) date) spacing device (Juaquin unknown) Aerosol Corson Enhancer spacer) #1 ea 11/08/21 (unknown) (no (unknown) (unknown) ketorolac (units (unkn own) date) unknown) (unknown) (no (unknown) (unknown) latex Adverse (units ( unknown) date) Reaction (Verified unknown) 04/22/22 10:12) (unknown) (no (unknown) (unknown) may occur. (units (unk nown) date) Occasional unknown) wrong-word or 'sound-alike' substitutions may have (unknown) (no (unknown) (unknown) migrainosus (units (un known) date) presence: without unknown) status migrainosus Qualified Code(s): G43.909 - (unknown) (no (unknown) (unknown) morphine Allergy (units (unknown) date) (Verified 04/22/22 unknown) 10:12) (unknown) (no (unknown) (unknown) occurred due to (units (unknown) date) the inherent unknown) limitations of voice recognition software. Please (unknown) (no (unknown) (unknown) ondansetron 4 mg (units (unknown) date) PO Q8H PRN 14 tabs unknown) 0RF nausea and vomiting R11.2 - Nausea with (unknown) (no (unknown) (unknown) ondansetron 4 mg (units (unknown) date) disintegrating unknown) tablet 4 mg PO Q8H PRN nausea and vomiting #14 (unknown) (no (unknown) (unknown) oriented and (units (u nknown) date) comfortable. unknown) (unknown) (no (unknown) (unknown) read the note (units ( unknown) date) carefully and unknown) recognize, using context, where these substitutions (unknown) (no (unknown) (unknown) shortness of (units (u nknown) date) breath or wheezing unknown) #6.7 grams 11/08/21 [Rx Confirmed 04/22/22] (unknown) (no (unknown) (unknown) software. Although (units (unknown) date) every effort is unknown) made to edit content, oyster picker errors (unknown) (no (unknown) (unknown) tabs 04/22/22 [Rx (units (unknown) date) Confirmed 04/22/22] unknown) (unknown) (no (unknown) (unknown) venlafaxine 75 mg (units (unknown) date) capsule,extended unknown) release 24 hr 75 mg PO DAILY #90 caps (unknown) (no (unknown) (unknown) vomiting, (units (unkn own) date) unspecified unknown) (unknown) (no (unknown) (unknown) vomiting, (units (unkn own) date) unspecified unknown) Social History date description facility (no date) [facility]s date measurement value units +0000 BP_diastolic BP_diastolic 80 mm[H g] +0000 BP_systolic BP_systolic 124 mm[Hg] +0000 heart_rate heart_rate 83 /min +0000 respiration_rate respiration_rate 16 /min +0000 temperature_metric temperature_metric 36.61 C +0000 temperature_standard temperature_standard 9 7.9 F +0000 weight_metric weight_metric 47.63 kg +0000 weight_standard weight_standard 105.01 lb
[2022-05-26 21:23] LABS: BILIRUBIN,URINE NEGATIVE (NEGATIVE); CLARITY,URINE HAZY (CLEAR); GLUCOSE, URINE (UA) NEGATIVE (NEGATIVE); KETONES,URINE (UA) NEGATIVE (NEGATIVE); LEUKOCYTE ESTERASE, URINE NEGATIVE (NEGATIVE); NITRITE,URINE NEGATIVE (NEGATIVE); OCCULT BLOOD,URINE LARGE (NEGATIVE); PH,URINE 5.5 PH (5.0-7.5); PROTEIN,URINE TRACE mg/dL (NEGATIVE); UROBILINOGEN,URINE 0.2 (NORMAL) E.U./dL (NORMAL)
[2022-05-26 21:30] LABS: BACTERIA,URINE Few /HPF (None Seen); MUCUS,URINE Few Strands; RBC,URINE TNTC /HPF (0-5); SQUAMOUS EPITHELIAL CELL,UR FEW Squamous (<= Few); WBC,URINE 0-3 /HPF (0-5)
[2022-05-26 21:38] LABS: ALBUMIN 4.1 g/dL (3.2-5.5); ALBUMIN/GLOBULIN RATIO 1.1 (1.0-2.2); BILIRUBIN,TOTAL 0.5 mg/dL (0.2-1.0); CALCIUM 9.5 mg/dL (8.5-10.3); CREATININE 0.8 mg/dL (0.4-1.0); POTASSIUM 3.6 mmol/L (3.5-5.0); TOTAL PROTEIN 7.7 g/dL (6.7-8.2)
--- NOTE | 2022-05-26 22:55 | Ultrasound Report ---
PROCEDURE: OB First Trimester w/TV INDICATIONS: VB, PREG, NO HX IUP, PCOS OUTSIDE/PRIOR DATING DATA: Last menstrual period (LMP): 03/27/2022. LMP-based estimated date of delivery (CHELITA): 01/01/2023. TECHNIQUE: Real-time scanning was performed of the fetus and maternal pelvic organs, with image documentation. Endovaginal scanning was also performed to better visualize the fetus and maternal ovaries. COMPARISON: None. FINDINGS: There is a gestational sac in the uterine fundus measuring approximately 1.7 cm mean sac d iameter. There is no definite pole identified within the gestational sac at this time. No yolk sac identified. No heart rate detected. IMPRESSION: Probable gestational sac at the uterine fundus measuring 1.7 cm in mean sac diameter which correspond s to gestational age 6 weeks four days. No definite pole identified. Findings could represent a n early intrauterine with nonvisualized pole, although nonvisualization fetus is unex pected at this gestational age and with an hCG of 31,000. Findings raise concern, therefore, for blig hted ovum or incomplete miscarriage. Close clinical and imaging follow-up recommended. Reviewed by: Shai Lyle MD on 05/26/2022 10:54 PM PDT Approved by: Shai Lyle MD on 05/26/2022 10:54 PM PDT Station ID: [id number]
[2022-05-26 23:13] VITALS: BP 128/70
== END 2022-05-26 23:18 | disposition home or self-care (01) ==
LOC: ED 20:58
DX: O20.0 Threatened abortion (principal); Z3A.01 Less than 8 weeks gestation of pregnancy; Z67.40 Type O blood, Rh positive
CPT/HCPCS: 36415; 80053; 81001; 84702; 85025; 86900; 86901; 87086; 99282; 99284

== ENCOUNTER 2022-07-31 12:17 | Outpatient (CLI) | payer MEDICAID ==
[2022-07-31 12:32] LABS: BASOPHILS % (AUTO) 0.2 %; EOSINOPHILS # (AUTO) 0.2 10^3/uL (0.0-0.7); EOSINOPHILS % (AUTO) 1.4 %; HGB - HEMOGLOBIN 12.1 g/dL (12.0-16.0); LYMPHOCYTES # (AUTO) 2.4 10^3/uL (1.5-3.5); LYMPHOCYTES % (AUTO) 20.5 %; MEAN CORPUSCULAR HEMOGLOBIN 28.9 pg (27.0-31.0); MEAN CORPUSCULAR HGB CONC 33.6 g/dL (32.0-36.0); MEAN CORPUSCULAR VOLUME 85.9 fL (81.0-99.0); MEAN PLATELET VOLUME 10.9 fL (7.9-10.8); MONOCYTES # (AUTO) 0.5 10^3/uL (0.0-1.0); MONOCYTES % (AUTO) 4.5 %; NEUTROPHILS # (AUTO) 8.5 10^3/uL (1.5-6.6); NEUTROPHILS % (AUTO) 72.5 %; PLT - PLATELET COUNT 214 10^3/uL (130-450); RED BLOOD COUNT 4.19 10^6/uL (4.20-5.40); RED CELL DISTRIBUTION WIDTH 12.6 % (12.0-15.0); WHITE BLOOD COUNT 11.8 x10^3/uL (4.8-10.8)
[2022-07-31 13:06] LABS: BILIRUBIN,URINE NEGATIVE (NEGATIVE); GLUCOSE, URINE (UA) NEGATIVE (NEGATIVE); KETONES,URINE (UA) NEGATIVE (NEGATIVE); LEUKOCYTE ESTERASE, URINE NEGATIVE (NEGATIVE); NITRITE,URINE NEGATIVE (NEGATIVE); OCCULT BLOOD,URINE NEGATIVE (NEGATIVE); PROTEIN,URINE NEGATIVE (NEGATIVE); UROBILINOGEN,URINE 0.2 (NORMAL) E.U./dL (NORMAL)
[2022-07-31 13:16] LABS: AMORPHOUS SEDIMENT,UR Few /LPF; BACTERIA,URINE Few /HPF (None Seen); CLARITY,URINE HAZY (CLEAR); MUCUS,URINE Marked Strands; RBC,URINE 0-5 /HPF (0-5); SQUAMOUS EPITHELIAL CELL,UR MANY Squamous (<= Few); WBC,URINE 0-3 /HPF (0-5)
[2022-08-01 03:08] LABS: HBsAG SCREEN Negative (Negative); HCV AB <0.1 s/co ratio (0.0-0.9)
[2022-08-01 06:09] LABS: HIV SCREEN 4TH GENERATION Non Reactive (Non Reactive)
[2022-08-01 08:10] LABS: RPR Non Reactive (Non Reactive)
[2022-08-01 09:08] LABS: VARICELLA-ZOSTER AB IGG 748 index (Immune >165)
== END 2022-07-31 12:18 | disposition home or self-care (01) ==
LOC: LAB 12:17
PROVIDERS: ATTEND Nurse Practitioner
DX: Z36.89 Encounter for other specified antenatal screening (principal)
CPT/HCPCS: 36415; 81001; 85025; 86592; 86762; 86787; 86803; 86850; 86900; 86901; 87086; 87340; 87389

== ENCOUNTER 2022-08-06 16:02 | Outpatient (CLI) | payer MEDICAID ==
[2022-08-10 14:08] LABS: AFP MOM See interpretation. (.); DIA MOM See interpretation. (.); DIA VALUE 88.33 pg/mL (.); DSR (BY AGE) 1 IN 1067 (.); DSR (SECOND TRIMESTER) 1 IN See interpretation. (.); GESTAT. AGE METHOD As provided (.); HCG MOM See interpretation. (.); HCG VALUE 46922 mIU/mL (.); MATERNAL AGE AT EDD 24.1 yr (.); OPEN SPINA BIFIDA RISK 1 IN See interpretation. (.); RESULTS Report (.); TEST RESULTS See interpretation. (.); TRISOMY 18 RISK See interpretation. (.); UE3 MOM See interpretation. (.); UE3 VALUE 0.69 ng/mL (.)
== END 2022-08-06 16:03 | disposition home or self-care (01) ==
LOC: LAB 16:02
PROVIDERS: ATTEND Nurse Practitioner
DX: Z36.89 Encounter for other specified antenatal screening (principal)
CPT/HCPCS: 36415; 81511

== ENCOUNTER 2022-08-25 12:28 | Emergency (ER) | payer MEDICAID ==
[2022-08-25] MEDS ORDERED: SODIUM CHLORIDE 0.9% 1,000 ML IV STA (12:59)
[2022-08-25] MEDS ORDERED: ONDANSETRON 4 MG/2 ML VIAL IVP STA (12:59)
[2022-08-25] MEDS ORDERED: ACETAMINOPHEN 500 MG TABLET PO STA (12:59)
--- NOTE | 2022-08-25 13:00 | ED Physician Documentation ---
PD HPI HEAD INJURY - Stated complaint Stated Complaint: FALL - Chief complaint Chief Complaint: Neuro - History obtained from History obtained from: Patient, Family - Additional information Additional information: 21-year-old G3, P1 with history of 1 miscarriage and issues with gestational hypertension in her first was in her usual state of health in the shower. She got out of the shower and started to feel presyncopal and eventually either passed out or fell hitting her head with loss of consciousness. She has moderate headache and severe nausea. No other injuries. No cramping or bleeding. Of note there is a very strong smell of cannabis, but that is evidently from the significant other. Review of Systems Ten Systems: 10 systems reviewed and negative Constitutional: denies: Fever, Chills Cardiac: denies: Chest pain / pressure, Palpitations Respiratory: denies: Dyspnea, Cough PD PAST MEDICAL HISTORY - Past Medical History : Other (PCOS) - Present Medications Home Medications: Ambulatory Orders Medication Instructions Recorded Confirmed Albuterol Sulf [Ventolin Hfa 1 - 2 puffs INH Q4HR PRN 08/25/22 08/25/22 Inhaler] Ondansetron Odt [Zofran] 4 mg TL Q6H PRN #10 tablet 08/25/22 Vits96/Iron Fum/Folic 1 tab ORAL DAILY 08/25/22 08/25/22 [ Tablet] metFORMIN [Glucophage] 500 mg PO BIDWM 08/25/22 08/25/22 - Allergies Allergies/Adverse Reactions: Allergies Allergy/AdvReac Type Severity Reaction Status Date / Time codeine Allergy Edema Verified 05/26/22 21:06 latex Allergy Hives Verified 08/25/22 12:32 morphine Allergy Hallucinati Verified 05/26/22 21:06 ons Penicillins Allergy Hives Verified 08/25/22 12:32 PD ED PE NORMAL - Vitals Vital signs reviewed: Yes - General General: Alert and oriented X 3, No acute distress, Well developed/nourished - HEENT HEENT: PERRL, EOMI - Neck Neck: Supple, no meningeal sign, No bony TTP - Cardiac Cardiac: RRR, No murmur - Respiratory Respiratory: No respiratory distress, Clear bilaterally - Abdomen Abdomen: Non tender, Other (Using limited bedside ultrasound I am able to identify a single live intrauterine with peak motion and normal heart rate.) - Back Back: No CVA TTP, No spinal TTP - Derm Derm: Normal color, Warm and dry - Extremities Extremities: No edema, No calf tenderness / cord - Neuro Neuro: Alert and oriented X 3, Normal speech Eye Opening: Spontaneous Motor: Obeys Commands Verbal: Oriented GCS Score: 15 Results - Vitals Vitals: Vital Signs - 24 hr 08/25/22 08/25/22 12:32 13:14 Temperature 36.8 C Heart Rate 100 89 Respiratory 16 18 Rate Blood Pressure 149/103 H 130/80 O2 Saturation 100 98 Oxygen O2 Source Room air - EKG (time done) 1248 Rate: Rate (enter#) (87) Rhythm: NSR Wood: Normal Intervals: Normal FL QRS: Normal Ischemia: Normal ST segments - Labs Labs: Laboratory Tests 08/25/22 08/25/22 13:10 13:10 WBC 10.5 RBC 4.33 Hgb 12.2 Hct 36.6 L MCV 84.5 MCH 28.2 MCHC 33.3 RDW 12.8 Plt Count 212 MPV 11.0 H Neut # (Auto) 7.9 H Lymph # (Auto) 1.8 Butts # (Auto) 0.5 Eos # (Auto) 0.1 Baso # (Auto) 0.0 Absolute Nucleated RBC 0.00 Nucleated RBC % 0.0 Sodium 133 L Potassium 3.8 Chloride 101 Carbon Dioxide 23 Anion Gap 9.0 BUN 10 Creatinine 0.6 Estimated GFR (MDRD) 124 Glucose 103 H Calcium 9.1 PD MEDICAL DECISION MAKING - ED course ED course: 21-year-old woman in 19 weeks with a syncopal episode potentially with concussive symptoms and headache and vomiting. Positive loss of consciousness. CT of the head without contrast was negative for any acute findings, no other injuries. Feeling better here after IV fluids and the remainder of her work-up was without pertinent positive findings. The patient and family were counseled as to the diagnosis and need for follow- up. I counseled the patient with regard to signs and symptoms that would necessitate an urgent reevaluation in the emergency department. They understand they are welcome to return at any time if worse or if not improving as expected. This document was made in part using voice recognition software. While efforts are made to proofread this documents, sound alike and grammatical errors may occur. Departure - Departure Disposition: 01 Home, Self Care Clinical Impression: Syncope, Concussion, Condition: Good Record reviewed to determine appropriate education?: Yes Instructions: ED Dizziness Syncope Fainting W Pre Prescriptions: Ondansetron Odt [Zofran] 4 mg TL Q6H PRN #10 tablet PRN Reason: Nausea / Vomiting Comments: Drink plenty of fluids, if you start to feel dizzy again make sure you get as flat as you can. Return for new or worsening symptoms. Follow-up with your OB as scheduled and make sure to discuss what happened today. Forms: Activity restrictions
[2022-08-25 13:18] LABS: BASOPHILS % (AUTO) 0.3 %; EOSINOPHILS # (AUTO) 0.1 10^3/uL (0.0-0.7); HCT - HEMATOCRIT 36.6 % (37.0-47.0); HGB - HEMOGLOBIN 12.2 g/dL (12.0-16.0); LYMPHOCYTES # (AUTO) 1.8 10^3/uL (1.5-3.5); LYMPHOCYTES % (AUTO) 17.3 %; MEAN CORPUSCULAR HEMOGLOBIN 28.2 pg (27.0-31.0); MEAN CORPUSCULAR HGB CONC 33.3 g/dL (32.0-36.0); MEAN CORPUSCULAR VOLUME 84.5 fL (81.0-99.0); MONOCYTES # (AUTO) 0.5 10^3/uL (0.0-1.0); NEUTROPHILS # (AUTO) 7.9 10^3/uL (1.5-6.6); PLT - PLATELET COUNT 212 10^3/uL (130-450); RED BLOOD COUNT 4.33 10^6/uL (4.20-5.40); RED CELL DISTRIBUTION WIDTH 12.8 % (12.0-15.0); WHITE BLOOD COUNT 10.5 x10^3/uL (4.8-10.8)
[2022-08-25 13:26] LABS: CALCIUM 9.1 mg/dL (8.5-10.3); CREATININE 0.6 mg/dL (0.4-1.0); POTASSIUM 3.8 mmol/L (3.5-5.0)
--- NOTE | 2022-08-25 14:02 | CT Report ---
PROCEDURE: HEAD WO INDICATIONS: Head injury TECHNIQUE: Noncontrast 4.5 mm thick angled axial sections acquired from the foramen magnum to the vertex. For r adiation dose reduction, the following was used: automated exposure control, adjustment of mA and/or kV according to patient size. COMPARISON: None. FINDINGS: Image quality: Excellent. CSF spaces: Basal cisterns are patent. No extra-axial fluid collections. Ventricles are normal in size and shape. Brain: No midline shift. No intracranial masses or hemorrhage. Barnes-white matter interface is norm al. Skull and face: Calvarium and visualized facial bones are intact, without suspicious lesions. Sinuses: Visualized sinuses and mastoids are clear. IMPRESSION: No acute intracranial finding. Reviewed by: Shai Lyle MD on 08/25/2022 2:00 PM PDT Approved by: Shai Lyle MD on 08/25/2022 2:00 PM PDT Station ID: [id number]
[2022-08-25 14:31] VITALS: BP 117/69
== END 2022-08-25 14:31 | disposition home or self-care (01) ==
LOC: ED 12:28
DX: O9A.212 Injury, poisoning and certain other consequences of external causes complicating pregnancy, second trimester (principal); S06.0X1A Concussion with loss of consciousness of 30 minutes or less, initial encounter; W18.39XA Other fall on same level, initial encounter; Y92.002 Bathroom of unspecified non-institutional (private) residence as the place of occurrence of the external cause; O99.891 Other specified diseases and conditions complicating pregnancy; R55 Syncope and collapse; Z3A.19 19 weeks gestation of pregnancy
CPT/HCPCS: 36415; 70450; 80048; 85025; 93005; 96361; 96374; 99283; 99284; A9270

== ENCOUNTER 2022-08-28 14:40 | Outpatient (CLI) | payer MEDICAID ==
--- NOTE | 2022-08-29 02:18 | Ultrasound Report ---
PROCEDURE: OB Detailed Eval INDICATIONS: SUPERVISION OF OUTSIDE/PRIOR DATING DATA: Last menstrual period (LMP): 03/27/2022. LMP-based estimated date of delivery (CHELITA): 01/01/2023. First dating scan (date and location): 06/05/2022. Estimated date of delivery (CHELITA) from first dating scan: 01/15/2023. The below data below was generated using the ultrasound derived CHELITA of 01/15/2023 TECHNIQUE: Real-time scanning was performed of the fetus, with image documentation and biometric measurements. Endovaginal scanning: COMPARISON: 05/26/2022. FINDINGS: General: A single living intrauterine gestation is present. Presentation: Vertex Placenta: Placental position is posterior, with the inferior margin approximately 1.8 cm from the in ternal cervical os. Amniotic fluid index: 15.5 cm, 42nd percentile for gestational age. Largest pocket: 4.6 cm. heart rate: 137 beats per minute. Maternal cervical canal: 3.4 cm long; normal length is 2.5 cm or more. biometrics: Biparietal diameter: 4.4 cm, 19 weeks 1 day Head circumference: 16.6 cm, 19 weeks 2 days Abdominal circumference: 15.2 cm, 20 weeks 2 days Femur length: 3.0 cm, 19 weeks 2 days Estimated gestational age from initial scan: 20 weeks 0 days Composite gestational age from present scan: 19 weeks 4 days Estimated weight and percentile: 313 g, 34th percentile Measurement variability in biometric dating: +/- 10 days from 12-20 weeks gestation, +/- 2 weeks from 20-30 weeks gestation, +/- 3 weeks at 30 weeks gestation or later. Anatomic survey: Neuro: Ventricles are normal at less than 10 mm. Cisterna magna is normal at 3-11 mm. Cerebellum i s normal in size and morphology. Nuchal skin fold: Normal at less than 6 mm between 14 and 20 weeks gestational age. Face: Nose and lips, facial profile are normal. Spine: Not well seen due to position. Heart: 4-chambered heart is present, with normal ventricular outflow tracts. Diaphragm: Diaphragm is intact. Stomach: Left-sided stomach is present. Kidneys: No hydronephrosis. Normal is less than 5 mm in 2nd trimester, less than 7 mm in 3rd trimester. Cord: 3 vessel cord has orthotopic insertion. Bladder: Normal in size. Extremities: All 4 extremities are visualized. IMPRESSION: 1. Single living intrauterine with calculated gestational age of 19 weeks 4 days correspond ing to an estimated delivery date of 01/15/2023. 2. spine not well seen due to position. 3. Marginal placenta previa. Recommend attention on follow-up. Reviewed by: Kd Hendrix MD on 08/29/2022 2:25 AM PDT Approved by: Kd Hendrix MD on 08/29/2022 2:25 AM PDT Station ID: [id number]
== END 2022-08-28 14:41 | disposition home or self-care (01) ==
LOC: DI 14:40
PROVIDERS: ATTEND Nurse Practitioner
DX: Z36.89 Encounter for other specified antenatal screening (principal); O44.22 Partial placenta previa NOS or without hemorrhage, second trimester; Z3A.19 19 weeks gestation of pregnancy

== ENCOUNTER 2022-09-25 17:07 | Outpatient (CLI) | payer MEDICAID ==
[2022-09-25 17:45] VITALS: BP 108/69
--- NOTE | 2022-09-25 17:48 | PROVIDER PROGRESS NOTE ---
- HPI Chief Complaint: Vaginal bleeding Current : Vital Signs Temperature 98.2 F 09/25/22 17:40 Heart Rate 89 09/25/22 17:40 Respiratory Rate 18 09/25/22 17:40 Blood Pressure 108/69 09/25/22 17:40 Temperature 98.2 F 09/25/22 17:40 Heart Rate 89 09/25/22 17:40 Respiratory Rate 18 09/25/22 17:40 Blood Pressure 108/69 09/25/22 17:40 O2 Saturation If not protocol: Oxygen Flow, liters/minute - Exam : No blood in vaginal vault. Cervix closed. no bleeding from cervical os. No blood with valsalva. FHT: 140-160 - Plan Plan: at 24 weeks. History of one previous delivery secondary to pre-eclampsia at 38+ weeks in [place]. NST not done, difficulty monitoring and patient only 24 weeks. FHT 140-160 No bleeding on exam Patient was diagnosed with placenta previa based on 20 week anatomy scan Discharged to home. Advised to return for vaginal bleeding or any other concerns.
== END 2022-09-25 18:06 | disposition home or self-care (01) ==
LOC: WFO 17:07 → FBP 17:10 → WFO 18:06
PROVIDERS: ATTEND Obstetrics & Gynecology Obstetrics
DX: O44.02 Complete placenta previa NOS or without hemorrhage, second trimester (principal); Z3A.24 24 weeks gestation of pregnancy
CPT/HCPCS: 99213

== ENCOUNTER 2022-10-02 10:24 | Outpatient (CLI) | payer MEDICAID ==
[2022-10-02 18:08] LABS: BASOPHILS % (AUTO) 0.3 %; EOSINOPHILS # (AUTO) 0.1 10^3/uL (0.0-0.7); EOSINOPHILS % (AUTO) 1.1 %; HCT - HEMATOCRIT 34.3 % (37.0-47.0); LYMPHOCYTES # (AUTO) 2.1 10^3/uL (1.5-3.5); LYMPHOCYTES % (AUTO) 20.2 %; MEAN CORPUSCULAR HEMOGLOBIN 28.4 pg (27.0-31.0); MEAN CORPUSCULAR HGB CONC 32.1 g/dL (32.0-36.0); MEAN CORPUSCULAR VOLUME 88.4 fL (81.0-99.0); MEAN PLATELET VOLUME 11.8 fL (7.9-10.8); MONOCYTES # (AUTO) 0.6 10^3/uL (0.0-1.0); NEUTROPHILS # (AUTO) 7.5 10^3/uL (1.5-6.6); NEUTROPHILS % (AUTO) 70.8 %; PLT - PLATELET COUNT 205 10^3/uL (130-450); RED BLOOD COUNT 3.88 10^6/uL (4.20-5.40); RED CELL DISTRIBUTION WIDTH 13.2 % (12.0-15.0); WHITE BLOOD COUNT 10.5 x10^3/uL (4.8-10.8)
== END 2022-10-02 10:25 | disposition home or self-care (01) ==
LOC: LAB.N 10:24
PROVIDERS: ATTEND Registered Nurse Diabetes Educator
DX: O34.211 Maternal care for low transverse scar from previous cesarean delivery (principal); O99.210 Obesity complicating pregnancy, unspecified trimester; O99.280 Endocrine, nutritional and metabolic diseases complicating pregnancy, unspecified trimester; E66.9 Obesity, unspecified; E28.2 Polycystic ovarian syndrome; Z36.89 Encounter for other specified antenatal screening
CPT/HCPCS: 36415; 82950; 85025

== ENCOUNTER 2022-10-07 20:23 | Outpatient (CLI) | payer MEDICAID ==
--- NOTE | 2022-10-08 11:12 | Ultrasound Report ---
PROCEDURE: OB F/U or Repeat INDICATIONS: PLACENTA PREVIA OUTSIDE/PRIOR DATING DATA: Last menstrual period (LMP): 03/27/2022. LMP-based estimated date of delivery (CHELITA): 01/01/2023. First dating scan (date and location): 06/05/2022. Estimated date of delivery (CHELITA) from first dating scan: 01/15/2023. The below data below was generated using the ultrasound CHELITA of 01/15/2023 TECHNIQUE: Real-time scanning was performed of the fetus, with image documentation and biometric measurements. Endovaginal scanning: Not performed COMPARISON: 08/28/2022 FINDINGS: General: A single living intrauterine gestation is present. Presentation: Vertex Placenta: Placental position is posterior, without previa. The head is now between the business intern al cervical os and the inferior margin of the placenta, distance greater than 4 cm. Amniotic fluid index: 14.7 cm, deepest pocket is 4.0 cm, normal for gestational age. heart rate: 136 beats per minute. Maternal cervical canal: Closed and 3.6 cm long; normal length is 2.5 cm or more. Other: spine and skin covering the spine are now well seen and appear normal. IMPRESSION: 1. Single living intrauterine . 2. Resolution of low-lying placenta. 3. Completion of anatomic survey with visualization of normal spine. Reviewed by: Sharmin Shaffer MD on 10/08/2022 11:10 AM PST Approved by: Sharmin Shaffer MD on 10/08/2022 11:10 AM PST Station ID: [id number]
== END 2022-10-07 20:24 | disposition home or self-care (01) ==
LOC: DI 20:23
PROVIDERS: ATTEND Nurse Practitioner
DX: O44.12 Complete placenta previa with hemorrhage, second trimester (principal)

== ENCOUNTER 2022-11-09 16:59 | Outpatient (CLI) | payer MEDICAID ==
--- NOTE | 2022-11-10 10:22 | Ultrasound Report ---
PROCEDURE: OB F/U or Repeat INDICATIONS: UTERINE SIZE DATE DISCREPANCY OUTSIDE/PRIOR DATING DATA: Last menstrual period (LMP): 03/27/2022. LMP-based estimated date of delivery (CHELITA): 01/01/2023. First dating scan (date and location): 06/05/2022. Estimated date of delivery (CHELITA) from first dating scan: 01/15/2023. The below data below was generated using the ultrasound CHELITA of 01/15/2023 TECHNIQUE: Real-time scanning was performed of the fetus, with image documentation and biometric measurements. Endovaginal scanning: Not performed. COMPARISON: 10/07/2022. FINDINGS: General: A single living intrauterine gestation is present. Presentation: Vertex Placenta: Placental position is posterior, without previa. Amniotic fluid index: 11.9 cm, normal for gestational age. heart rate: 148 beats per minute. Maternal cervical canal: Not well visualized. biometrics: Biparietal diameter: 7.25 cm, 29 weeks 1 day Head circumference: 27.2 cm, 29 weeks 5 days Abdominal circumference: 24.65 cm, 28 weeks 6 days Femur length: 5.8 cm, 30 weeks 2 days Estimated gestational age from initial scan: 30 weeks 3 days. Composite gestational age from present scan: 29 weeks 4 days Estimated weight and percentile: 1397 g, 12th percentile Measurement variability in biometric dating: +/- 10 days from 12-20 weeks gestation, +/- 2 weeks from 20-30 weeks gestation, +/- 3 weeks at 30 weeks gestation or more. Other: Not applicable. IMPRESSION: 1. Single living intrauterine in vertex presentation. 2. Estimated weight at the 12th percentile. Reviewed by: Len Bell MD on 11/10/2022 10:21 AM PST Approved by: Len Bell MD on 11/10/2022 10:21 AM PST Station ID: [id number]
== END 2022-11-09 17:00 | disposition home or self-care (01) ==
LOC: DI 16:59
PROVIDERS: ATTEND Nurse Practitioner
DX: O26.843 Uterine size-date discrepancy, third trimester (principal); O99.213 Obesity complicating pregnancy, third trimester; O34.211 Maternal care for low transverse scar from previous cesarean delivery; Z3A.29 29 weeks gestation of pregnancy

== ENCOUNTER 2022-11-19 08:00 | Outpatient (CLI) | payer MEDICAID ==
[2022-11-19 15:28] LABS: BILIRUBIN,URINE NEGATIVE (NEGATIVE); GLUCOSE, URINE (UA) NEGATIVE (NEGATIVE); KETONES,URINE (UA) NEGATIVE (NEGATIVE); LEUKOCYTE ESTERASE, URINE NEGATIVE (NEGATIVE); NITRITE,URINE NEGATIVE (NEGATIVE); OCCULT BLOOD,URINE NEGATIVE (NEGATIVE); PH,URINE 7.5 PH (5.0-7.5); PROTEIN,URINE NEGATIVE (NEGATIVE); UROBILINOGEN,URINE 0.2 (NORMAL) E.U./dL (NORMAL)
[2022-11-19 15:32] LABS: CLARITY,URINE HAZY (CLEAR)
[2022-11-19 15:55] LABS: BACTERIA,URINE Few /HPF (None Seen); RBC,URINE 0-5 /HPF (0-5); SQUAMOUS EPITHELIAL CELL,UR MOD Squamous (<= Few); WBC,URINE 0-3 /HPF (0-5)
[2022-11-19 22:20] LABS: BACTERIAL VAGINOSIS DNA NEGATIVE (NEGATIVE); CANDIDA GLABRATA DNA NEGATIVE (NEGATIVE); CANDIDA GROUP DNA POSITIVE (NEGATIVE); CANDIDA KRUSEI DNA NEGATIVE (NEGATIVE); TRICHOMONAS VAGINALIS DNA NEGATIVE (NEGATIVE)
== END 2022-11-19 23:59 | disposition home or self-care (01) ==
LOC: LAB.R 08:00
PROVIDERS: ATTEND Nurse Practitioner
DX: O23.43 Unspecified infection of urinary tract in pregnancy, third trimester (principal); O99.719 Diseases of the skin and subcutaneous tissue complicating pregnancy, unspecified trimester; L29.8 Other pruritus
CPT/HCPCS: 81001; 81514; 87086

== ENCOUNTER 2022-12-01 07:48 | Outpatient (CLI) | payer MEDICAID ==
--- NOTE | 2022-12-01 12:09 | Ultrasound Report ---
PROCEDURE: OB F/U or Repeat INDICATIONS: UTERINE SIZE DATE DISCREPANCY OUTSIDE/PRIOR DATING DATA: Last menstrual period (LMP): 03/23/2022. LMP-based estimated date of delivery (CHELITA): 01/01/2023. First dating scan (date and location): 06/05/2022. Estimated date of delivery (CHELITA) from first dating scan: 01/15/2023. The below data below was generated using the working CHELITA of 01/15/2023 TECHNIQUE: Real-time scanning was performed of the fetus, with image documentation and biometric measurements. Endovaginal scanning: None COMPARISON: 10/07/2022 FINDINGS: General: A single living intrauterine gestation is present. Presentation: Vertex Placenta: Placental position is posterior, without previa. Amniotic fluid index: 9.7 cm, normal for gestational age. heart rate: 136 beats per minute. Maternal cervical canal: Nonvisualized biometrics: Biparietal diameter: 7.9 cm, 31 week 4 day Head circumference: 20.9 cm, 31 week 5 day Abdominal circumference: 29.1 cm, 33 week 4 day Femur length: 6.2 cm, 32 week 1 day Estimated gestational age from initial scan: 33 week 4 day Composite gestational age from present scan: 32 week 2 day Estimated weight and percentile: 2045 g, 20th percentile Measurement variability in biometric dating: +/- 10 days from 12-20 weeks gestation, +/- 2 weeks from 20-30 weeks gestation, +/- 3 weeks at 30 weeks gestation or more. Other: Not applicable. IMPRESSION: Single live intrauterine consistent with a 32 week 2 day gestation, by current ultrasound Reviewed by: Moiz Moran MD on 12/01/2022 11:07 AM ETHAN Approved by: Moiz Moran MD on 12/01/2022 11:07 AM [facility] Station ID: [id number]
== END 2022-12-01 07:49 | disposition home or self-care (01) ==
LOC: DI 07:48
PROVIDERS: ATTEND Nurse Practitioner
DX: O26.843 Uterine size-date discrepancy, third trimester (principal); Z3A.32 32 weeks gestation of pregnancy

== ENCOUNTER 2022-12-16 12:14 | Outpatient (CLI) | payer MEDICAID ==
[2022-12-16 13:25] LABS: BILIRUBIN,URINE NEGATIVE (NEGATIVE); GLUCOSE, URINE (UA) NEGATIVE (NEGATIVE); KETONES,URINE (UA) NEGATIVE (NEGATIVE); LEUKOCYTE ESTERASE, URINE NEGATIVE (NEGATIVE); NITRITE,URINE NEGATIVE (NEGATIVE); OCCULT BLOOD,URINE NEGATIVE (NEGATIVE); PH,URINE 7.5 PH (5.0-7.5); PROTEIN,URINE NEGATIVE (NEGATIVE); UROBILINOGEN,URINE 1 (NORMAL) E.U./dL (NORMAL)
--- NOTE | 2022-12-16 13:29 | PROVIDER PROGRESS NOTE ---
- HPI Chief Complaint: Decreased movement Current : Vital Signs Temperature 98.2 F 12/16/22 12:30 Temperature 98.2 F 12/16/22 12:30 Heart Rate Respiratory Rate Blood Pressure O2 Saturation If not protocol: Oxygen Flow, liters/minute - Procedures OB Procedure Performed: NST Service Date of procedure: 12/16/22 (12/16/2022) - Plan Plan: Triage visit patient is a 22-year-old -0-1-1 at 35 weeks 5 days gestation presenting to triage for decreased movement. She denies leaking or bleeding. No dysuria. No itching or burning she denies headache, right upper quadrant pain, changes in vision. Intermittent contractions, happening approximate every other day. 3 out of 10 in intensity. She does have a history of a previous low-transverse section Physical exam Constitutional: alert, no acute distress, well hydrated, well developed, well nourished, appropriate dress. Cardiovascular: Regular rate and rhythm. Respiratory: no respiratory distress. Abdomen: nondistended, nontender, no guarding. Psych: affect and mood appropriate, normal interaction, good eye contact. FHT: 145 beats per minute baseline, moderate variability, accelerations present, no decelerations. Reactive NST [place]: 3 to 4 minutes SVE: 0/0/-3 TANI: 12.4 cm Assessment and plan 22-year-old -0-1-1 at 35 weeks 5 days gestation with decreased movement 1. Decreased movement: Reactive NST and numerous movement since arrival to triage. Modified BPP was good with adequate amniotic fluid. 2. Contractions not leading to labor: Patient having intermittent contractions that are not severe, occasional every 3 to 4 minutes then spaced out. She was observed in triage for 2 hours without cervical change. She is observed in triage initially for 2 hours without cervical change, but with regular contractions. She was given a fluid bolus and allowed to rest. Contractions subsided and patient no longer felt them and we did not pick them up on monitors. After 2 additional hours, she was rechecked and found to remain closed and was sent home with strict labor precautions. 3. Previous low-transverse section x1. -Plan for repeat section at 39 weeks, or if patient labors.
[2022-12-16 13:32] LABS: CLARITY,URINE CLEAR (CLEAR)
[2022-12-16 13:37] LABS: RBC,URINE 0-5 /HPF (0-5); WBC,URINE 0-3 /HPF (0-5)
[2022-12-16 13:38] LABS: BACTERIA,URINE Few /HPF (None Seen); SQUAMOUS EPITHELIAL CELL,UR MOD Squamous (<= Few)
[2022-12-16] MEDS ORDERED: LACTATED RINGERS 1,000 ML IV ONE (15:05)
[2022-12-16 18:12] LABS: BACTERIAL VAGINOSIS DNA NEGATIVE (NEGATIVE); CANDIDA GROUP DNA POSITIVE (NEGATIVE); CANDIDA KRUSEI DNA NEGATIVE (NEGATIVE); TRICHOMONAS VAGINALIS DNA NEGATIVE (NEGATIVE)
[2022-12-16 18:13] LABS: CANDIDA GLABRATA DNA NEGATIVE (NEGATIVE)
[2022-12-16 18:16] VITALS: BP 121/71
== END 2022-12-16 18:00 | disposition home or self-care (01) ==
LOC: WFO 12:14 → FBP 12:17 → WFO 18:00
PROVIDERS: ATTEND Obstetrics & Gynecology
DX: O36.8130 Decreased fetal movements, third trimester, not applicable or unspecified (principal); O47.03 False labor before 37 completed weeks of gestation, third trimester; O34.211 Maternal care for low transverse scar from previous cesarean delivery; Z3A.35 35 weeks gestation of pregnancy
CPT/HCPCS: 59025; 81001; 81514; 96360; 99215; J7120; 99214

== ENCOUNTER 2022-12-18 16:00 | Outpatient (CLI) | payer MEDICAID | END 2022-12-18 23:59 | disposition home or self-care (01) | LOC: LAB 16:00 | PROVIDERS: ATTEND Nurse Practitioner | DX: Z36.85 Encounter for antenatal screening for Streptococcus B (principal) | CPT/HCPCS: 87077; 87081; 87181; 87797 ==

== ENCOUNTER 2022-12-18 16:12 | Outpatient (CLI) | payer MEDICAID ==
[2022-12-18 16:27] VITALS: BP 117/74
[2022-12-18] MEDS ORDERED: FLUCONAZOLE 100 MG TABLET PO SCH (18:00)
--- NOTE | 2022-12-20 07:21 | PROCEDURE REPORT ---
- HPI Diagnosis/Indication for NST: Decreased movement Current EDU 01/15/23 Gestation 36 Weeks and 0 Days 3 Para 1 Vital Signs Temperature 98.4 F 12/18/22 16:25 Heart Rate 138 H 12/18/22 16:25 Respiratory Rate 18 12/18/22 16:25 Blood Pressure 117/74 12/18/22 16:25 Temperature 98.4 F 12/18/22 16:44 Heart Rate 102 H 12/18/22 16:44 Respiratory Rate 18 12/18/22 16:44 Blood Pressure 117/74 12/18/22 16:44 O2 Saturation If not protocol: Oxygen Flow, liters/minute - NST Procedure NST Procedure Start Date 12/18/22 Start Time 16:20 Stop Time 17:10 Vibroacoustic Stimulation Used No Patient States Movement Yes: decreased EFM: 140s, moderate variability, positive 15x15 accelerations [place]: irregular ~6 min contractions NST reactive/Cat 1 SVE closed EFM performed and read 12/20 - Results and Plan Findings/Impression: 22yo at 36 weeks sent from office visit for NST for decreased movement - NST reactive, patient reassured. Not in labor, cervix still closed. - Discharge to home, follow up as scheduled
== END 2022-12-18 17:40 | disposition home or self-care (01) ==
LOC: WFO 16:12 → FBP 16:15 → WFO 16:40
PROVIDERS: ATTEND Obstetrics & Gynecology
DX: O36.8130 Decreased fetal movements, third trimester, not applicable or unspecified (principal); Z3A.36 36 weeks gestation of pregnancy
CPT/HCPCS: 99213; A9270; 59025

== ENCOUNTER 2022-12-29 17:30 | Outpatient (CLI) | payer MEDICAID ==
[2022-12-29] MEDS ORDERED: ONDANSETRON 4 MG/2 ML VIAL IVP PRN (17:57)
[2022-12-29] MEDS ORDERED: LACTATED RINGERS 1,000 ML IV SCH (18:00)
[2022-12-29 18:38] LABS: HCT - HEMATOCRIT 34.6 % (37.0-47.0); HGB - HEMOGLOBIN 11.5 g/dL (12.0-16.0); MEAN CORPUSCULAR HEMOGLOBIN 27.4 pg (27.0-31.0); MEAN CORPUSCULAR HGB CONC 33.2 g/dL (32.0-36.0); MEAN CORPUSCULAR VOLUME 82.4 fL (81.0-99.0); MEAN PLATELET VOLUME 12.5 fL (7.9-10.8); RED BLOOD COUNT 4.2 10^6/uL (4.20-5.40); RED CELL DISTRIBUTION WIDTH 13.4 % (12.0-15.0); WHITE BLOOD COUNT 11.3 x10^3/uL (4.8-10.8)
[2022-12-29 18:51] LABS: ALBUMIN 2.9 g/dL (3.2-5.5); ALBUMIN/GLOBULIN RATIO 0.8 (1.0-2.2); BILIRUBIN,TOTAL 0.4 mg/dL (0.2-1.0); CALCIUM 8.8 mg/dL (8.5-10.3); CREATININE 0.7 mg/dL (0.4-1.0); POTASSIUM 3.5 mmol/L (3.5-5.0); TOTAL PROTEIN 6.7 g/dL (6.7-8.2)
[2022-12-29] MEDS ORDERED: METOCLOPRAMIDE 10 MG/2 ML VIAL IVP ONE ×2 (19:31→19:49)
[2022-12-29] MEDS ORDERED: ACETAMINOPHEN 500 MG TABLET PO ONE (19:31)
[2022-12-29] MEDS ORDERED: diphenhydrAMINE INJ 50 MG/ML VIAL IVP ONE (19:32)
[2022-12-29 20:59] VITALS: BP 132/71
--- NOTE | 2022-12-31 09:57 | PROVIDER PROGRESS NOTE ---
- HPI Chief Complaint: Headache Current : Current EDU 01/15/23 Gestation 37 Weeks and 4 Days 3 Para 1 Vital Signs Temperature 98.8 F 12/29/22 17:42 Heart Rate 116 H 12/29/22 17:42 Respiratory Rate 18 12/29/22 17:42 Blood Pressure 125/71 12/29/22 17:42 Temperature 99.0 F 12/29/22 20:25 Heart Rate 111 H 12/29/22 20:25 Respiratory Rate 18 12/29/22 20:25 Blood Pressure 132/71 H 12/29/22 20:25 O2 Saturation If not protocol: Oxygen Flow, liters/minute - Procedures OB Procedure Performed: NST Diagnosis/Indication for NST: Other (Headache, evaluation for preeclampsia) NST Procedure: NST Procedure Start Date 12/29/22 Start Time 17:40 Stop Time 18:10 Vibroacoustic Stimulation Used No Patient States Movement Yes EFM: 140s, moderate variability, positive 15x15 accelerations, no decelerations [place]: no contractions NST reactive/Cat 1 Performed and read on 12/29/22 Service Date of procedure: 12/29/22 - Plan Plan: 22yo at 37.4w presenting to [facility]BP with headache, not resolved with Tylenol and rest. Also episode of vomiting. Denies sick contacts. Denies visual changes, abdominal pain. care at [facility], complicated by prior CD x1, obesity. VSS, afebrile GEN: NAD Abd: nt NST reactive CBC and CMP benign, unable to provide urine sample (normotensive) 22yo at 37.4w with headache during , improved at discharge - Given Tylenol, Zofran, Reglan, Benadryl and 1L LR bolus. Tolerated regular diet prior to discharge. - NST reactive - CBC, CMP benign - Follow up as scheduled
== END 2022-12-29 20:35 | disposition home or self-care (01) ==
LOC: WFO 17:30 → FBP 17:33 → WFO 20:35
PROVIDERS: ATTEND Obstetrics & Gynecology
DX: O99.891 Other specified diseases and conditions complicating pregnancy (principal); R51.9 Headache, unspecified; R11.2 Nausea with vomiting, unspecified; Z3A.37 37 weeks gestation of pregnancy
CPT/HCPCS: 36415; 59025; 80053; 85027; 96361; 96374; 96375; 99213; A9270; J1200; J2765; J7120; 99214

== ENCOUNTER 2023-01-08 13:27 | Outpatient (CLI) | payer MEDICAID ==
[2023-01-08 14:19] LABS: BASOPHILS % (AUTO) 0.2 %; EOSINOPHILS # (AUTO) 0.1 10^3/uL (0.0-0.7); EOSINOPHILS % (AUTO) 0.9 %; HCT - HEMATOCRIT 33.3 % (37.0-47.0); HGB - HEMOGLOBIN 11.2 g/dL (12.0-16.0); LYMPHOCYTES # (AUTO) 2.2 10^3/uL (1.5-3.5); LYMPHOCYTES % (AUTO) 21.8 %; MEAN CORPUSCULAR HEMOGLOBIN 27.8 pg (27.0-31.0); MEAN CORPUSCULAR HGB CONC 33.6 g/dL (32.0-36.0); MEAN CORPUSCULAR VOLUME 82.6 fL (81.0-99.0); MEAN PLATELET VOLUME 12.5 fL (7.9-10.8); MONOCYTES # (AUTO) 0.7 10^3/uL (0.0-1.0); MONOCYTES % (AUTO) 6.9 %; NEUTROPHILS # (AUTO) 6.9 10^3/uL (1.5-6.6); NEUTROPHILS % (AUTO) 68.9 %; PLT - PLATELET COUNT 186 10^3/uL (130-450); RED BLOOD COUNT 4.03 10^6/uL (4.20-5.40); RED CELL DISTRIBUTION WIDTH 13.9 % (12.0-15.0); WHITE BLOOD COUNT 10.1 x10^3/uL (4.8-10.8)
[2023-01-08 14:30] LABS: ALBUMIN 2.8 g/dL (3.2-5.5); ALBUMIN/GLOBULIN RATIO 0.7 (1.0-2.2); BILIRUBIN,TOTAL 0.6 mg/dL (0.2-1.0); CALCIUM 9.3 mg/dL (8.5-10.3); CREATININE 0.6 mg/dL (0.4-1.0); POTASSIUM 3.8 mmol/L (3.5-5.0); TOTAL PROTEIN 6.6 g/dL (6.7-8.2)
[2023-01-08 14:54] VITALS: BP 104/49
--- NOTE | 2023-01-08 14:58 | PROVIDER PROGRESS NOTE ---
- HPI Chief Complaint: Hypertension/PIH Current : Current EDU 01/15/23 Gestation 39 Weeks and 0 Days 3 Para 1 Vital Signs Temperature 98.2 F 01/08/23 13:42 Heart Rate 104 H 01/08/23 13:42 Respiratory Rate 16 01/08/23 13:42 Blood Pressure 126/70 01/08/23 13:42 O2 Saturation 98 01/08/23 13:42 Temperature 98.2 F 01/08/23 13:42 Heart Rate 100 01/08/23 14:16 Respiratory Rate 16 01/08/23 13:42 Blood Pressure 104/49 L 01/08/23 14:32 O2 Saturation 98 01/08/23 13:42 If not protocol: Oxygen Flow, liters/minute - Procedures OB Procedure Performed: NST Diagnosis/Indication for NST: Gestational Hypertension NST Procedure: NST Procedure Start Date 01/08/23 Start Time 13:40 Stop Time 14:34 Vibroacoustic Stimulation Used No Patient States Movement Yes Service Date of procedure: 01/08/23 (Read 01/08/23) - Plan Plan: Patient is a 22-year-old at 39 weeks 0 days gestation presenting to triage for elevated blood pressure in clinic. Blood pressure is elevated to 140s over 90s 1 time in clinic. She has good movement, no leaking, no vaginal bleeding. She denies headache, right upper quadrant pain, changes in vision. Past surgical history Previous section x1 Physical Exam Constitutional: alert, no acute distress, well hydrated, well developed, well nourished, appropriate dress. Cardiovascular: Regular rate and rhythm. Respiratory: no respiratory distress. Abdomen: Gravid, nondistended, nontender, no guarding. Psych: affect and mood appropriate, normal interaction, good eye contact. Labs: Platelets: 186 AST/ALT: 15/11 Creatinine 0.6 Urine protein to creatinine ratio: Not reportable Assessment and plan 22-year-old -0-1-1 at 39 weeks 0 days gestation with elevated blood pressure, not meeting criteria for gestational hypertension 1. 39 weeks gestation 2. Elevated blood pressure not with diagnosis of hypertension -Does not meet criteria for gestational hypertension. 1 elevated value in clinic, but blood pressure here 100s to 120s over 60s to 70s. Labs are all normal. Has a scheduled in 4 days. Will return if she develops any symptoms. Patient discharged with labor precautions, preeclampsia precautions.
[2023-01-08 15:23] LABS: CREATININE,URINE 47.2 mg/dL
[2023-01-08 15:26] LABS: TOTAL PROTEIN,URINE TIMED < 6 mg/dL
== END 2023-01-08 16:10 | disposition home or self-care (01) ==
LOC: WFO 13:27 → FBP 13:30 → WFO 16:10
PROVIDERS: ATTEND Obstetrics & Gynecology
DX: O99.891 Other specified diseases and conditions complicating pregnancy (principal); R03.0 Elevated blood-pressure reading, without diagnosis of hypertension; Z3A.39 39 weeks gestation of pregnancy
CPT/HCPCS: 36415; 59025; 80053; 82570; 84156; 85025; 99215

== ENCOUNTER 2023-01-12 05:13 | Inpatient (IN) | payer MEDICAID ==
[2023-01-12] MEDS ORDERED: LACTATED RINGERS 1,000 ML IV SCH ×4 (06:00→15:00)
[2023-01-12] MEDS ORDERED: SODIUM CHLORIDE 0.9% 100ML 100 ML IV ONE (06:13)
[2023-01-12 06:55] LABS: BASOPHILS % (AUTO) 0.3 %; EOSINOPHILS # (AUTO) 0.1 10^3/uL (0.0-0.7); HCT - HEMATOCRIT 34.5 % (37.0-47.0); HGB - HEMOGLOBIN 11.3 g/dL (12.0-16.0); LYMPHOCYTES # (AUTO) 1.7 10^3/uL (1.5-3.5); LYMPHOCYTES % (AUTO) 16.5 %; MEAN CORPUSCULAR HEMOGLOBIN 27.6 pg (27.0-31.0); MEAN CORPUSCULAR HGB CONC 32.8 g/dL (32.0-36.0); MEAN CORPUSCULAR VOLUME 84.4 fL (81.0-99.0); MEAN PLATELET VOLUME 12.8 fL (7.9-10.8); MONOCYTES # (AUTO) 0.8 10^3/uL (0.0-1.0); MONOCYTES % (AUTO) 7.4 %; NEUTROPHILS # (AUTO) 7.5 10^3/uL (1.5-6.6); NEUTROPHILS % (AUTO) 73.4 %; PLT - PLATELET COUNT 189 10^3/uL (130-450); RED BLOOD COUNT 4.09 10^6/uL (4.20-5.40); RED CELL DISTRIBUTION WIDTH 13.9 % (12.0-15.0); WHITE BLOOD COUNT 10.2 x10^3/uL (4.8-10.8)
--- NOTE | 2023-01-12 07:01 | ANESTHESIA ---
Pre-Anesthesia VS, & Labs - Diagnosis previous section - Procedure section Vital Signs: Temp Pulse Resp BP Pulse Ox O2 Flow Rate 36.9 C 116 H 18 123/81 H 01/12/23 05:40 01/12/23 05:40 01/12/23 05:40 01/12/23 05:40 Height: 5 ft 2 in Weight (kg): 118.478 kg Body Mass Index: 47.7 BMI Classification: Morbidly Obese - NPO >8 hours - Is Patient ?: Yes - Lab Results Current Lab Results: Laboratory Tests 01/12/23 06:02: WBC 10.2, RBC 4.09 L, Hgb 11.3 L, Hct 34.5 L, MCV 84.4, MCH 27.6, MCHC 32.8, RDW 13.9, Plt Count 189, MPV 12.8 H, Neut # (Auto) 7.5 H, Lymph # (Auto) 1.7, [place] # (Auto) 0.8, Eos # (Auto) 0.1, Baso # (Auto) 0.0, Absolute Nucleated RBC 0.00, Nucleated RBC % 0.0 Fish Bones: 01/12/23 06:02 Home Medications and Allergies Active Medications Lactated Ringer's (Lr) 1,000 mls @ 0 mls/hr IV .Q0M NAY Last Admin: 01/12/23 06:20 Dose: 20 mls/hr Albuterol Sulf [Ventolin Hfa Inhaler] 1 - 2 puffs INH Q4HR PRN 08/25/22 Vits96/Iron Fum/Folic [ Tablet] 1 tab ORAL DAILY 08/25/22 metFORMIN [Glucophage] 500 mg PO BIDWM 08/25/22 Allergies/Adverse Reactions: Allergies Allergy/AdvReac Type Severity Reaction Status Date / Time codeine Allergy Edema Verified 05/26/22 21:06 latex Allergy Hives Verified 08/25/22 12:32 morphine Allergy Hallucinati Verified 05/26/22 21:06 ons Penicillins Allergy Hives Verified 08/25/22 12:32 Anes History & Medical History - Anesthetic History Anesthesia Complications: reports: No previous complications - Medical History Cardiovascular: reports: None Pulmonary: reports: Asthma Gastrointestinal: reports: None Urinary: reports: Other (PCOS) Neuro: reports: Migraines Musculoskeletal: reports: None Endocrine/Autoimmune: reports: None Blood Disorders: reports: None Skin: reports: None Smoking Status: Former smoker - Surgical History Gynecologic: reports: section Orthopedic: reports: Other Exam General: Alert, Oriented x3, Cooperative Dental: WNL Mouth Opening: Greater than 4 Fingerbreadths Neck Mobility: Normal Mallampati classification: II Thyromental Distance: greater than 6 cm Respiratory: Lungs clear Cardiovascular: Regular rate Plan Anesthesia Type: Spinal, Transverse Abdominis Plane (TAP) Block Consent for Procedure(s) Verified and Reviewed: Yes Code Status: Attempt Resuscitation ASA classification: 2-Mild systemic disease Is this case an emergency?: No
[2023-01-12] MEDS ORDERED: ONDANSETRON 4 MG/2 ML VIAL IVP PRN (07:02)
[2023-01-12] MEDS ORDERED: HYDROmorphone 0.5 MG/0.5 ML SYRINGE IVP PRN (07:02)
[2023-01-12] MEDS ORDERED: METOCLOPRAMIDE 10 MG/2 ML VIAL IVP PRN (07:02)
[2023-01-12] MEDS ORDERED: ATROPINE ABBOJECT 1 MG/10 ML SYRINGE IVP PRN (07:02)
[2023-01-12] MEDS ORDERED: NALOXONE 0.4 MG/ML VIAL IVP PRN ×2 (07:02→09:52)
[2023-01-12] MEDS ORDERED: ePHEDrine 50 MG/ML VIAL IVP PRN (07:02)
[2023-01-12] MEDS ORDERED: OXYTOCIN 10 UNIT/ML VIAL ONE ×2 (07:11→09:32)
[2023-01-12] MEDS ORDERED: SODIUM CHLORIDE 0.9% 10 ML VIAL IVP ONE (07:11)
[2023-01-12] MEDS ORDERED: BUPIVACAINE 0.5% PF 30 ML VIAL ONE (07:26)
[2023-01-12] MEDS ORDERED: LIDOCAINE MPF 2%-EPI 1:200000 20 ML VIAL ONE (07:26)
--- NOTE | 2023-01-12 07:40 | HISTORY & PHYSICAL EXAMINATION ---
Admit History - Visit Reason Visit Reason: Other (Scheduled RCD/BS) - : 3 Parity: 1 Care: positive: [facility] Risk/History: positive: Previous Smoking Status: Former smoker - Mother's Labs Mother's Blood Type: positive: O Mother's RH: positive: Positive GBS: positive: Group B Strep Positive Rubella Status: positive: Immune - Other Maternal History Other Maternal History: Med: BMI 48, history anxiety/depression, mild intermittent asthma Surg: Prior CD 2017, Tonsillectomy, Hysteroscopy, Right knee surgery December 2021 Fam: noncontributory Social: denies maylin Meds/Allgy - Home Medications Home Medications: Ambulatory Orders Medication Instructions Recorded Confirmed Albuterol Sulf [Ventolin Hfa 1 - 2 puffs INH Q4HR PRN 08/25/22 08/25/22 Inhaler] Ondansetron Odt [Zofran] 4 mg TL Q6H PRN #10 tablet 08/25/22 Vits96/Iron Fum/Folic 1 tab ORAL DAILY 08/25/22 08/25/22 [ Tablet] metFORMIN [Glucophage] 500 mg PO BIDWM 08/25/22 08/25/22 - Allergies Allergies/Adverse Reactions: Allergies Allergy/AdvReac Type Severity Reaction Status Date / Time codeine Allergy Edema Verified 05/26/22 21:06 latex Allergy Hives Verified 08/25/22 12:32 morphine Allergy Hallucinati Verified 05/26/22 21:06 ons Penicillins Allergy Hives Verified 08/25/22 12:32 Review of Systems - All Other Systems All Other Systems: reports: Reviewed and negative Physical - Abdominal Exam Vital Signs: Temp Pulse Resp BP Pulse Ox O2 Flow Rate 98.4 F 116 H 18 123/81 H 01/12/23 05:40 01/12/23 05:40 01/12/23 05:40 01/12/23 05:40 Contraction Frequency (min/apart): none Uterine Resting Tone: positive: Soft - Monitoring Heart Rate Baseline: 150 Strip Review: positive: Category I - Presentation Presentation: positive: Vertex (Placenta posterior, EFW 3600g) - Vaginal Exam Membranes: positive: Membranes intact Plan for Labor - Plan For Labor I expect patient to be DC'd or transferred within 96 hours.: Yes Plan for Labor: Maternal care for low transverse scar from previous delivery (ICD10- O34.211) 22yo at 39w - To OR for RCD/BS - Follow up Risks of section were discussed including but not limited to risk of bleeding, infection, injury to nearby organs requiring repair, deep venous thrombosis or . Risks of blood transfusion were also discussed including b ut not limited to transfusion reaction or transmission of HIV, Hepatitis B or C. Consents were signed for Section and blood transfusion. Problem # 2: Obesity complicating , third trimester (ICD-649.13) (FKL51-C56.213) Problem # 3: Emotional AND/OR mental disease in mother complicating , third trimester (ICD-648.43) (CXL86-D60.343) Problem # 4: GBS positive (ICD-V02.51) (TFZ47-W91.330) Problem # 5: Asthma, intermittent, mild (ICD-493.90) (CHX15-V69.20) Problem # 6: 39 weeks gestation of (ICD-V28.9) ([id number]-W8M.39)
[2023-01-12] MEDS ORDERED: KETOROLAC 30 MG/ML VIAL ONE (08:58)
[2023-01-12] MEDS ORDERED: ROPIVACAINE 0.5% PF 20 ML VIAL ONE (09:13)
[2023-01-12] MEDS ORDERED: fentaNYL 100 MCG/2 ML VIAL ONE (09:22)
[2023-01-12] MEDS ORDERED: ONDANSETRON 4 MG/2 ML VIAL ONE (09:23)
[2023-01-12] MEDS ORDERED: WITCH HAZEL/GLYCERIN 1 PAD TOP PRN (09:52)
[2023-01-12] MEDS ORDERED: OXYTOCIN/SODIUM CHLORIDE 500 ML IV PRN (09:52)
[2023-01-12] MEDS ORDERED: HYDROCORTISONE 1% CREAM 28 GM TUBE TOP PRN (09:52)
[2023-01-12] MEDS ORDERED: CALCIUM CARBONATE CHEW 500 MG TABLET PO PRN (09:52)
--- NOTE | 2023-01-12 10:00 | OPERATIVE REPORT ---
Operative Report - General Admit Date: 01/12/23 Procedure Date: 01/12/23 Planned Procedure: Repeat section, bilateral salpingectomy Pre-Op Diagnosis: Prior sectionx1, multiparity, desires permanent sterilization, 39w Procedure Performed: Repeat section, bilateral salpingectomy Post Op Diagnosis: Prior sectionx1, multiparity, desires permanent sterilization, 39w - Procedure Note Primary Surgeon: Madison Edwards DO Secondary Surgeon: Gabriela Veras NP; assistance required for retraction, safe completion Anesthesia Provider: Anika Cam CRNA Anesthesia Technique: Spinal Pathology: Bilateral oviducts Estimated Blood Loss (mL): 800 Indications: Prior sectionx1, multiparity, desires permanent sterilization, 39w Findings: Normal appearing uterus, oviducts, ovaries, moderate uterine adhesions Complications: None - Other Other Information/Narrative: Under spinal anaesthetic with a shafer catheter inserted, the patient was prepped and draped in the usual sterile fashion in the supine position with a leftward tilt. A Pfannensteil incision was made. The incision was carried down to the fascia with sharp dissection and cautery. The fascia was incised transversely and dissected off the rectus muscle using sharp dissection. Electrocautery was used for hemostasis. The peritoneum was opened taking care not to injure the bladder. Moderate amount of adhesions noted from uterus to anterior peritoneum/muscle. The vesicouterine peritoneum was dissected off the lower uterine segment. The lower segment was assessed and a low transverse incision was made. The uterine incision was extended bluntly. The fetus was presenting as a vertex. The head was delivered without difficulty and the rest of the body followed easily. After one minute of delayed cord clamping, the cord was clamped twice and cut and the baby transferred to the warm, awaiting nursing and aligner. Cord blood obtained. The placenta was then delivered with assistance. The uterus was explored and was empty of all tissue. The uterus was exteriorized for better visualization. The uterine incision was then closed in one layer with 0- monocryl. Tubes and ovaries were examined and appeared normal. Ligasure device used to remove oviducts along mesosalpinx. Hemostasis noted at all dissection sites. Fascia was closed with 0-Vicryl in a running unlocked fashion. Subcutaneous layer approximated with 2-0 chromic. The skin was then reapproximated with 3-0 Monocryl. At the end of the procedure all sponges, instruments, and sharps were counted and correct. Estimated blood loss was 800cc. The patient and baby were taken to the recovery in stable condition. Apgars 9/9.
[2023-01-12] MEDS ORDERED: LACTATED RINGERS 1,000 ML IV ONE (10:08)
[2023-01-12] MEDS: HYDROmorphone 1 MG/ML CARPUJECT ONE ×2 (10:47→10:51)
[2023-01-12] MEDS: fentaNYL 100 MCG/2 ML VIAL IVP PRN ×3 (11:05→11:16)
--- NOTE | 2023-01-12 11:13 | ANESTHESIA POST OP EVALUATION ---
Anesthesia Post Eval - Post Anesthesia Eval Vitals: Last Vital Signs Temp 36.8 C 01/12/23 10:50 Pulse 93 01/12/23 11:10 Resp 18 01/12/23 11:10 BP 109/83 H 01/12/23 11:10 Pulse Ox 98 01/12/23 11:10 O2 Flow Rate CV Function Including HR & BP: Stable Pain Control: Satisfactory Nausea & Vomiting: Negative Mental Status: Baseline Respiratory Status: Airway Patent Hydration Status: Satisfactory Anesthesia Complications: None
[2023-01-12] MEDS: ACETAMINOPHEN 500 MG TABLET PO SCH ×2 (11:59→19:46)
[2023-01-12] MEDS: oxyCODONE 5 MG TABLET PO PRN ×4 (11:59→23:50)
[2023-01-12] MEDS: LACTATED RINGERS 1,000 ML IV SCH (14:00)
[2023-01-12] MEDS: KETOROLAC 30 MG/ML VIAL IVP SCH ×2 (15:00→20:50)
[2023-01-12] MEDS: DOCUSATE SODIUM 100 MG CAPSULE PO SCH (20:56)
[2023-01-13] MEDS: KETOROLAC 30 MG/ML VIAL IVP SCH ×2 (03:08→12:15)
[2023-01-13] MEDS: ACETAMINOPHEN 500 MG TABLET PO SCH ×3 (03:42→21:44)
[2023-01-13] MEDS: oxyCODONE 5 MG TABLET PO PRN ×4 (03:42→19:52)
[2023-01-13 06:22] LABS: HCT - HEMATOCRIT 26.2 % (37.0-47.0); HGB - HEMOGLOBIN 8.7 g/dL (12.0-16.0); MEAN CORPUSCULAR HEMOGLOBIN 28.2 pg (27.0-31.0); MEAN CORPUSCULAR HGB CONC 33.2 g/dL (32.0-36.0); MEAN CORPUSCULAR VOLUME 85.1 fL (81.0-99.0); MEAN PLATELET VOLUME 12.2 fL (7.9-10.8); RED BLOOD COUNT 3.08 10^6/uL (4.20-5.40); RED CELL DISTRIBUTION WIDTH 14.6 % (12.0-15.0); WHITE BLOOD COUNT 8.3 x10^3/uL (4.8-10.8)
[2023-01-13] MEDS ORDERED: FERRIC GLUCONATE 125 MG in SODIUM CHLORIDE 0.9% 100ML 100 ML IV SCH (08:00)
[2023-01-13] MEDS ORDERED: IBUPROFEN 600 MG TABLET PO SCH (10:00)
[2023-01-13] MEDS: DOCUSATE SODIUM 100 MG CAPSULE PO SCH ×2 (10:08→21:43)
[2023-01-13] MEDS ORDERED: IBUPROFEN 800 MG TABLET PO ONE (11:55)
--- NOTE | 2023-01-13 12:14 | PROVIDER PROGRESS NOTE ---
Subjective - Prog Note Date Prog Note Date: 01/13/23 - Subjective Subjective: Subjective Patient reports she is doing well. Lochia appropriate. Denies heavy bleeding. Ambulating. Sitting up is initially difficult, but abdominal binder is helping. Pelvic and abdominal pain well-controlled. Tolerating oral intake. Diet: Regular. Voiding without difficulty. Passing flatus. Denies BM. Patient is bonding with baby in room Breast feeding going well. Denies feeling lightheaded, dizzy or excessively fatigued. Objective General: Alert, oriented, no apparent distress. Cardiovascular: Regular rate. Regular rhythm. Lungs: No increased work of breathing. Abdomen: Uterus firm. Below umbilicus. No guarding or rebound. Extremities: No pain on palpation. No cords palpated. Distal pulses intact. Incision: Candice in place Assessment and Plan day 1. -Routine care -Anticipate discharge tomorrow Mild intermittent asthma Stable Objective - Vital Signs/Intake & Output Vital Signs: Vital Signs x48h Temp Pulse Resp BP Pulse Ox 01/13/23 09:00 98.1 F 100 16 129/72 100 Intake & Output: Intake & Output 01/10/23 01/11/23 01/12/23 01/13/23 23:59 23:59 23:59 23:59 Intake Total 5150 550 Output Total 1250 450 Balance 3900 100 - Lab Results Fish Bones: 01/13/23 06:06 Other Labs: Lab Results x24hrs 01/13/23 Range/Units 06:06 WBC 8.3 (4.8-10.8) x10^3/uL RBC 3.08 L (4.20-5.40) 10^6/uL Hgb 8.7 L (12.0-16.0) g/dL Hct 26.2 L (37.0-47.0) % MCV 85.1 (81.0-99.0) fL MCH 28.2 (27.0-31.0) pg MCHC 33.2 (32.0-36.0) g/dL RDW 14.6 (12.0-15.0) % Plt Count 134 (130-450) 10^3/uL MPV 12.2 H (7.9-10.8) fL
[2023-01-13] MEDS: LACTATED RINGERS 1,000 ML IV SCH ×2 (12:22→12:23)
[2023-01-13] MEDS: SIMETHICONE CHEW 80 MG TABLET PO PRN (13:00)
[2023-01-13] MEDS: IBUPROFEN 800 MG TABLET PO SCH (17:44)
[2023-01-14] MEDS: IBUPROFEN 800 MG TABLET PO SCH ×2 (00:02→06:27)
[2023-01-14] MEDS: oxyCODONE 5 MG TABLET PO PRN (01:28)
[2023-01-14] MEDS: ACETAMINOPHEN 500 MG TABLET PO SCH (06:47)
[2023-01-14] MEDS: SIMETHICONE CHEW 80 MG TABLET PO PRN (07:27)
[2023-01-14 08:15] VITALS: BP 127/71
--- NOTE | 2023-01-14 10:22 | Discharge Plan ---
Discharge Plan Problem Reviewed?: Yes Disposition: Home, Self Care Condition: Good Diet: Regular Activity Restrictions: Activity as Tolerated (Pelvic rest until bleeding stops) Shower Restrictions: No Driving Restrictions: Yes (No driving while taking narcotics) Weight Bearing: Full Weight Instruction Topics: , Depression , No Smoking: If you smoke, Please STOP! Call for help. Follow-up with: Madison Edwards DO [Provider Admit Priv/Credential] -
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
== END 2023-01-14 12:15 | disposition home or self-care (01) | DRG 784 ==
LOC: FBP 05:13
PROVIDERS: ADMIT Obstetrics & Gynecology; ATTEND Obstetrics & Gynecology
PROC: 0UB70ZZ Excision of Bilateral Fallopian Tubes, Open Approach (ICD-10-PCS; 2023-01-12)
PROC: 10D00Z1 Extraction of Products of Conception, Low, Open Approach (ICD-10-PCS; principal; 2023-01-12 07:30)
DX: O34.211 Maternal care for low transverse scar from previous cesarean delivery (principal); D62 Acute posthemorrhagic anemia; Z3A.39 39 weeks gestation of pregnancy; Z37.0 Single live birth; O99.214 Obesity complicating childbirth; O99.344 Other mental disorders complicating childbirth; F41.9 Anxiety disorder, unspecified; F32.A Depression, unspecified; O99.52 Diseases of the respiratory system complicating childbirth; J45.20 Mild intermittent asthma, uncomplicated; O99.824 Streptococcus B carrier state complicating childbirth; O90.81 Anemia of the puerperium; Z87.891 Personal history of nicotine dependence; Z30.2 Encounter for sterilization
CPT/HCPCS: 36415; 85025; 85027; 86850; 86900; 86901; A9270; J1170; J2795; J2916; J7040; J7120

== ENCOUNTER 2023-05-03 08:49 | Emergency (ER) | payer MEDICAID ==
[2023-05-03 09:09] VITALS: BP 129/86
--- NOTE | 2023-05-03 09:43 | ED Physician Documentation ---
PD HPI URI - Stated complaint Stated Complaint: SOA,COUGH,RT EAR PX - Chief complaint Chief Complaint: Resp - History obtained from History obtained from: Patient - History of Present Illness Timing - onset: How many days ago (4-5) Timing duration: Days Timing details: Gradual onset, Still present Associated symptoms: Nasal congestion, Productive cough, Dyspnea. No: Fever Contributing factors: COPD / asthma. No: Sick contact, Travel Improves by: MDI/nebulizer Worsened by: Activity Similar symptoms before: Has not had sx before Recently seen: Clinic (Rx keflex and to continue MDI. No other meds.) Review of Systems Constitutional: denies: Fever, Chills Nose: reports: Rhinorrhea / runny nose, Congestion Throat: denies: Sore throat Cardiac: denies: Chest pain / pressure Respiratory: reports: Dyspnea, Cough, Wheezing GI: reports: Nausea. 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 - Present Medications Home Medications: Ambulatory Orders Medication Instructions Recorded Confirmed Albuterol Sulf [Ventolin Hfa 1 - 2 puffs INH Q4HR PRN 08/25/22 08/25/22 Inhaler] Ondansetron Odt [Zofran] 4 mg TL Q6H PRN #10 tablet 08/25/22 Vits96/Iron Fum/Folic 1 tab ORAL DAILY 08/25/22 08/25/22 [ Tablet] metFORMIN [Glucophage] 500 mg PO BIDWM 08/25/22 08/25/22 Albuterol Sulf [Ventolin Hfa 1 - 2 puffs INH Q4HR PRN #1 each 05/03/23 Inhaler] Cetirizine [ZyrTEC] 10 mg PO BID #15 tablet 05/03/23 dexAMETHasone [Decadron] 4 mg PO DAILY #5 tablet 05/03/23 - Allergies Allergies/Adverse Reactions: Allergies Allergy/AdvReac Type Severity Reaction Status Date / Time codeine Allergy Edema Verified 05/03/23 09:00 latex Allergy Hives Verified 05/03/23 09:00 morphine Allergy Hallucinati Verified 05/03/23 09:00 ons Penicillins Allergy Hives Verified 05/03/23 09:00 - Social History Does the pt smoke?: No Smoking Status: Never smoker Does the pt drink ETOH?: No Does the pt have substance abuse?: No - Immunizations Immunizations are current?: Yes PD ED PE NORMAL - Vitals Vital signs reviewed: Yes - General General: Well developed/nourished - HEENT HEENT: Pharynx benign - Neck Neck: Supple, no meningeal sign, No adenopathy - Cardiac Cardiac: No murmur. No: RRR (tachycardic but regular. ) - Respiratory Respiratory: No respiratory distress. No: Clear bilaterally (some exp wheezing noted scattered. No coarse sounds. ) - Abdomen Abdomen: Soft, Non tender Results - Vitals Vitals: Vital Signs - 24 hr 05/03/23 09:00 Temperature 37.9 C Heart Rate 129 H Respiratory 22 Rate Blood Pressure 129/86 H O2 Saturation 97 Oxygen O2 Source Room air PD Medical Decision Making - ED course Complexity details: reviewed old records (pharmacy review shows pt was Rx Keflex 2 days ago. ), considered differential (ear on right with serous bulging. Not red. May have looked worse 2 days ago, so will have her continue the antibiotics. Add antihistamine, steroid, and continue albuterol. ), d/w patient ED course: has URI vs allergy symptoms. Most likely viral. Using Albuterol. was given Rx for Keflex, though seems most likely viral. Can have her take steroid course, and aantihistamines. I looked up tessalon and was suggested not to use in as no data available. Departure - Departure Disposition: 01 Home, Self Care Clinical Impression: Upper respiratory infection, Acute serous otitis media, Persistent cough, Exacerbation of asthma, Mother currently breast-feeding Condition: Stable Record reviewed to determine appropriate education?: Yes Prescriptions: Albuterol Sulf [Ventolin Hfa Inhaler] 1 - 2 puffs INH Q4HR PRN #1 each PRN Reason: Shortness Of Air/Wheezing dexAMETHasone [Decadron] 4 mg PO DAILY #5 tablet Cetirizine [ZyrTEC] 10 mg PO BID #15 tablet Comments: Your ear mainly has a lot of fluid behind the eardrum. This may be improved akash earance compared to the walk-in 2 days ago. If so, the may be the antibiotic is starting to help. Otherwise if this is mainly viral then the ear pain can be largely from trapped fluid. We can try to help with antihistamine cetirizine twice daily for the next several days to week and also dexamethasone steroid for inflammation. The dexamethasone should help with the bronchial irritation and therefore less coughing and barking. Continue with your albuterol inhaler 2 to 3 puffs with your spacer 4 times daily and extra times if needed. I considered Tessalon for the cough but when referencing drug reference, it seems limited data available so we will hold off on that. [id number] cough medicine such as Robitussin is okay. Continue with the cephalexin antibiotic previously prescribed. I sent your prescriptions to [facility] pharmacy. Recheck if worsening or if not improving well over the next few days. Discharge Date/Time: 05/03/23 10:57
[2023-05-03] MEDS ORDERED: dexAMETHasone 4 MG TABLET PO STA (10:46)
== END 2023-05-03 10:57 | disposition home or self-care (01) ==
LOC: ED 08:49
DX: J06.9 Acute upper respiratory infection, unspecified (principal); J45.901 Unspecified asthma with (acute) exacerbation; H65.01 Acute serous otitis media, right ear; R05.3 Chronic cough; Z79.84 Long term (current) use of oral hypoglycemic drugs; Z79.899 Other long term (current) drug therapy; Z91.040 Latex allergy status
CPT/HCPCS: 99282; 99284; J8540

== ENCOUNTER 2023-10-06 14:25 | Outpatient (CLI) | payer OTHER, MEDICAID | END 2023-10-06 14:26 | disposition EMS.NT | LOC: EMS 14:25 | DX: R07.89 Other chest pain (principal); V43.52XA Car driver injured in collision with other type car in traffic accident, initial encounter; Y92.414 Local residential or business street as the place of occurrence of the external cause ==

== ENCOUNTER 2023-10-06 15:43 | Emergency (ER) | payer OTHER, MEDICAID ==
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
[2023-10-06] MEDS ORDERED: CYCLOBENZAPRINE 10 MG TABLET PO STA (18:11)
[2023-10-06] MEDS ORDERED: KETOROLAC 60 MG/2 ML VIAL IM STA (18:11)
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
[2023-10-06 18:44] VITALS: BP 148/74; O2SAT 98
== END 2023-10-06 18:40 | disposition home or self-care (01) ==
LOC: ED 15:43
DX: S70.02XA Contusion of left hip, initial encounter (principal); S40.212A Abrasion of left shoulder, initial encounter; V49.40XA Driver injured in collision with unspecified motor vehicles in traffic accident, initial encounter; Y92.410 Unspecified street and highway as the place of occurrence of the external cause; Z79.4 Long term (current) use of insulin
CPT/HCPCS: 73502; 96372; 99283; 99284; A9270

== ENCOUNTER 2023-10-21 19:20 | Outpatient (CLI) | payer OTHER, MEDICAID ==
--- NOTE | 2023-10-22 09:03 | Ultrasound Report ---
PROCEDURE: Pelvic Complete INDICATIONS: DEEP DYSPAREUNIA TECHNIQUE: Real-time transabdominal scanning was performed of the pelvic organs, with image documentation. COMPARISON: None FINDINGS: Uterus: Uterus is anteverted and normal in size at 9.6 x 4.0 x 5.3 cm. The myometrium is heterogene ous. The endometrium measures 4.6 mm in combined thickness. No uterine fibroids. Ovaries: The right ovary measures 3.5 x 1.9 x 3.8 cm, with a calculated ovarian volume of 13.3 cc. The left ovary measures 2.8 x 3.0 x 2.8 cm, with a calculated ovarian volume of 12.3 cc. The ovaries have a normal sonographic appearance. Less than 12 follicles can be seen in each ovary. No adnexal masses are seen. No cystic lesions measuring greater than 3 cm. Other: No free pelvic fluid. IMPRESSION: 1.No findings to explain patient's symptoms. 2.Normal transabdominal pelvic ultrasound. Reviewed by: Beny Perdomo MD on 10/22/2023 9:01 AM [facility] Approved by: Beny Perdomo MD on 10/22/2023 9:01 AM PST Station ID: [id number]
== END 2023-10-21 19:21 | disposition home or self-care (01) ==
LOC: DI 19:20
PROVIDERS: ATTEND Nurse Practitioner
DX: N94.12 Deep dyspareunia (principal)